=== PATIENT | female | born 1985 ===

== ENCOUNTER 2017-05-28 20:16 | Observation (INO) ==
[2017-05-28 20:40] VITALS: BP 117/61
[2017-05-28 20:46] LABS: Bilirubin,Urine Negative (Negative); Blood,Urine Negative (Negative); Color,Urine Yellow (Yellow); Glucose,Urine (UA) Normal (Normal); Ketones,Urine Negative (Negative); Leukocyte Esterase,Urine Moderate (Negative); Nitrite,Urine Negative (Negative); PH,Urine 5.5 pH Units (5.0-8.0); Protein,Urine Negative (Neg-Trace)
[2017-05-28 20:48] LABS: Bacteria,Urine Few per hpf (None-Few); Hyaline Casts,Urine None Seen per lpf (None-Few); Squamous Epithelial Cell,Urine Many per lpf (None-Few); WBC,Urine 30-50 per hpf (0-3)
[2017-05-28 20:49] LABS: Clarity,Urine Hazy (Clear)
[2017-05-28 20:58] LABS: Amphetamine Screen,Urine Negative ng/mL (Cutoff=1000); Barbiturate Screen,Urine Negative ng/mL (Cutoff=200); Benzodiazepines Screen,Urine Negative ng/mL (Cutoff=200); Cannabinoid Screen,Urine Negative ng/mL (Cutoff = 50); Cocaine Screen,Urine Negative ng/mL (Cutoff= 300); Opiate Screen,Urine Negative ng/mL (Cutoff=300); Phencyclidine Screen,Urine Negative ng/mL (Cutoff=25)
--- NOTE | 2017-05-28 20:58 | OB/GYN History & Physical ---
Date of Encounter: 05/28/17 Time of Encounter: 20:54 Assessment and Plan (1) 37 weeks gestation of Current visit: Yes Status: Acute patient concerned for labor. no bleeding, cramping, or fluid leakage. We will plan to monitor the patient and recheck cervix in 1-2 hours plan to discharge home if no cervical change. History of Present Illness HPI: Ms. Eastman is a 32 year old female at 37 weeks and 3 days presenting to labor and delivery for concern she is in labor. Patient states she was seen a few days ago in the office and told she was at 4 CM. She states with her first she did not have any pain with contractions so she was concerned since baby feels very low. Denies any bleeding, cramping, or fluid leakage. Patient denies urinary complaints. Increased pressure and back pain recently. No complications with first . Patient is group B strep negative. No other labs found in her chart. Past Med Surg Social Fam HX - Past Medical History Medical history: no medical history Psychiatric history: no psych history - Past Surgical History Surgical History: no surgical history - Social History Smoking Status: Never smoker Alcohol use: none Drug use: none - Family History Father Age: 64 Living Status: Still Living Hx Family Cardiac Disorders: No Hx Family Respiratory Disorders: No Hx Family Cancer: No Hx Family GI Disorders: No Hx Family Genitourinary Disorders: No Hx Family Endocrine Disorder: No Hx Family Musculoskeletal Disorders: No Hx Family Neuromuscular Disorders: No Hx Family Neurologic Disorders: No Hx Family HEENT Disorders: No Hx Family Autoimmune Disorders: No Hx Family Reproductive Disorders: No Hx Family Psychosocial Disorders: No Hx Family Medical Disorders: Yes (seizure's) Obstetrical History - Pregnancies : 2 Para: 1 Term: 1 : 0 Ab's: 0 Livin Medications and Allergies Formula Tablet 1 tab PO DAILY 05/28/17 [History] 3 Allergy/AdvReac Type Severity Reaction Status Date / Time Erythromycin Base AdvReac Intermediate See Verified 05/28/17 20:45 Comments Review of System OB All systems PM: reviewed and no additional remarkable complaints except as stated Exam - Vital Signs Vital signs: Initial Vital Signs Temp Pulse Resp BP 97.9 F 96 16 117/61 05/28/17 20:27 05/28/17 20:27 05/28/17 20:27 05/28/17 20:27 - Constitutional Constitutional: well developed, well nourished, no acute distress, average body habitus - HEENT HEENT: Normocephaly, Mucus Membranes Moist - Neck Neck exam: full ROM, normal inspection - Lungs Respiratory exam: CTAB - Cardiovascular Cardiovascular exam: RRR - Abdomen Abdomen: Present: gravid, non tender - Extremities Extremities exam: warm - Uterus Uterus exam: Present: enlarged (gravid), normal contour Results Abnormal lab results Urine Clarity Hazy (Clear) A 05/28/17 20:35 Urine Urobilinogen 4.0 mg/dL (Normal) H 05/28/17 20:35 Ur Leukocyte Esterase Moderate (Negative) H 05/28/17 20:35 Urine Microscopic RBC 5-15 per hpf (0-3) H 05/28/17 20:35 Urine Microscopic WBC 30-50 per hpf (0-3) H 05/28/17 20:35 Ur Squamous Epith Cells Many per lpf (None-Few) H 05/28/17 20:35 All other labs normal. - VTE Reasons for not Prescribing Prophylaxis: Treatment not Indicated - Low risk for VTE
== END 2017-05-29 01:24 | disposition home or self-care (01) ==
LOC: 1NENULAB
PROVIDERS: ADMIT Obstetrics & Gynecology; ATTEND Obstetrics & Gynecology

== ENCOUNTER 2017-05-30 19:57 | Inpatient (IN) ==
[2017-05-30 18:00] LABS: Bilirubin,Urine Negative (Negative); Blood,Urine Negative (Negative); Clarity,Urine Cloudy (Clear); Color,Urine Yellow (Yellow); Glucose,Urine (UA) Normal (Normal); Ketones,Urine Trace mg/dL (Negative); Leukocyte Esterase,Urine Large (Negative); Nitrite,Urine Negative (Negative); Protein,Urine Negative (Neg-Trace); Specific Gravity,Urine 1.012 (1.010-1.025); Urobilinogen,Urine Normal (Normal)
[2017-05-30 18:03] LABS: Bacteria,Urine None Seen per hpf (None-Few); Hyaline Casts,Urine None Seen per lpf (None-Few); RBC,Urine 0-3 per hpf (0-3); Squamous Epithelial Cell,Urine Many per lpf (None-Few); WBC,Urine 30-50 per hpf (0-3)
[2017-05-30 18:09] LABS: Amphetamine Screen,Urine Negative ng/mL (Cutoff=1000); Barbiturate Screen,Urine Negative ng/mL (Cutoff=200); Benzodiazepines Screen,Urine Negative ng/mL (Cutoff=200); Cannabinoid Screen,Urine Negative ng/mL (Cutoff = 50); Cocaine Screen,Urine Negative ng/mL (Cutoff= 300); Opiate Screen,Urine Negative ng/mL (Cutoff=300); Phencyclidine Screen,Urine Negative ng/mL (Cutoff=25)
[~2017-05-30 19:57] MED LIST: *HR* Nalbuphine 20 MG/ML AMPUL IVP PRN; Famotidine 20 MG/2 ML VIAL IVP PRN; Lidocaine 1% 20 ML MDV INFILT PRN; Naloxone 0.4 MG/ML INJ IVP PRN; Ondansetron 4 MG/2 ML VIAL IVP PRN
[2017-05-30] MEDS ORDERED: Ringers Solution, Lactated 1,000 ML IVC SCH (20:00)
--- NOTE | 2017-05-30 20:24 | OB/GYN History & Physical ---
Date of Encounter: 05/30/17 Time of Encounter: 20:00 Assessment and Plan (1) Encounter for induction of labor Current visit: Yes Status: Acute Plan: - NST category II, with wide, variable decelerations indicating induction of labor - admit to L&D -expectant management. Consider beginning induction with pitocin - obtained CBC - anticipate normal POC per consult with Dr Bowman. (2) heart deceleration Current visit: Yes Status: Acute wide, variable decelerations (3) 37 weeks gestation of Current visit: No Status: Acute History of Present Illness Chief complaint: contractions HPI: Ms. Eastman is a 32 year old female at 37+5 weeks presented to labor and delivery with contractions and was found to have wide, variable decelerations. Patient has been ankit intermittently but felt different pressure today and did not feel her contractions last . Patient's is uncomplicated. Reports active movement. Patient denies vaginal bleeding or leakage of fluids. Denies N/V, changes in vision, LUDWIG. Patient follows up with the midwives. PNL: Blood type A+, GBS neg, RI, HBsAG neg, HIV neg. RPR neg. Past Med Surg Social Fam HX - Past Medical History Medical history: no medical history, other (PMDD) Psychiatric history: no psych history - Past Surgical History Surgical History: no surgical history - Social History Smoking Status: Never smoker Smokeless Tobacco Status: No Alcohol use: none Drug use: none - Family History Father Living Status: Still Living Hx Family Cardiac Disorders: No Hx Family Respiratory Disorders: No Hx Family Cancer: No Hx Family GI Disorders: No Hx Family Endocrine Disorder: No Hx Family Neuromuscular Disorders: No Hx Family Neurologic Disorders: No Hx Family HEENT Disorders: No Hx Family Autoimmune Disorders: No Mother Hx Family Cardiac Disorders: Yes (HTN, heart disease) Grandmother Hx Family Reproductive Disorders: Yes (breast ca) Obstetrical History - Pregnancies : 2 Para: 1 Term: 1 : 0 Ab's: 0 Livin - History/Complications History/Complications: none Medications and Allergies Formula Tablet 1 tab PO DAILY 05/28/17 [History] 3 Allergy/AdvReac Type Severity Reaction Status Date / Time Erythromycin Base AdvReac Intermediate See Verified 05/28/17 20:45 Comments Review of System OB All systems PM: reviewed and no additional remarkable complaints except as stated Exam - Vital Signs Vital signs: wnl - Constitutional Constitutional: well developed, well nourished - HEENT HEENT: EOMI, PERRL - Neck Neck exam: full ROM - Lungs Respiratory exam: CTAB - Cardiovascular Cardiovascular exam: RRR - Abdomen Abdomen: Present: non tender - Extremities Extremities exam: normal inspection - Cervix Dilation: 5 Effacement: 80 - Uterus Uterus exam: Present: normal size Results Result Diagrams: 05/30/17 20:25 Abnormal lab results Urine Clarity Cloudy (Clear) A 05/30/17 17:51 Urine Ketones Trace mg/dL (Negative) H 05/30/17 17:51 Ur Leukocyte Esterase Large (Negative) H 05/30/17 17:51 Urine Microscopic WBC 30-50 per hpf (0-3) H 05/30/17 17:51 Ur Squamous Epith Cells Many per lpf (None-Few) H 05/30/17 17:51 All other labs normal. - VTE Reasons for not Prescribing Prophylaxis: Treatment not Indicated - Low risk for VTE - Attending Attestation I examined this patient and my medical decision-making was reviewed with the Resident Physician. I agree with the documented findings, disposition and treatment plan as described. Peggy Pro CNM
[2017-05-30 20:36] LABS: Basophils % 0.3 %; Eosinophils % 0.1 %; Hematocrit 37.8 % (35.3-44.9); Hemoglobin 12.3 g/dL (11.5-15.4); Immature Granulocytes % 0.4 % (0-4); Lymphocytes # 1.4 K/mcL (0.6-4.6); Lymphocytes % 20.1 %; Mean Corpuscular HGB Conc 32.5 g/dL (31.6-35.5); Mean Corpuscular Hemoglobin 29.4 pg (28.0-33.3); Mean Corpuscular Volume 90.2 fL (83.0-100.0); Mean Platelet Volume 11.6 fL (9.4-12.4); Monocytes # 0.6 K/mcL (0.0-1.3); Monocytes % 8.2 %; Platelet Count 164 K/mcL (140-400); Red Blood Count 4.19 M/mcL (3.82-4.97); Red Cell Distribution Width 13.2 % (11.5-14.5); Segmented Neutrophils % 70.9 %
[2017-05-30] MEDS ORDERED: Oxytocin 20 units/ LR 1000 mL 20 UNIT/1,000 ML BAG IVC SCH (20:45)
--- NOTE | 2017-05-31 03:48 | Event Note ---
Date of Encounter: 05/31/17 Time of Encounter: 03:38 Called to room by nursing staff. Patient is having difficulty with deciding to proceed with the induction of labor. I sat with the patient and her family for a significant amount of time discussing the pros/cons/unknowns of induction of labor based upon tracing. While in the room, fetus had two audible decelerations with maternal movement that returned to baseline over a 30 second duration. Encouraged proceeding with IOL due to unknown reasons as to why fetus continues to decelerate with maternal movement. Patient has increased fear of vomiting during labor and is afraid that she will vomit with IOL. Discussed that there is medication available to decrease potential for vomiting. Patient agrees to IOL after discussion and would like zofran prior to starting pitocin. We discussed turning off the lights and attempting to relax to help cervical dilation occur. At the time of this discussion patient is open to an epidural if needed, but declines AROM if possible to avoid.
[2017-05-31] MEDS ORDERED: *HR* FentaNYL (PF) 100 MCG/2 ML VIAL EP ONE (07:24)
[2017-05-31] MEDS ORDERED: *HR* Ropivacaine/PF 0.2% 20 ML VIAL EP ONE (07:24)
[2017-05-31] MEDS ORDERED: *HR* FentaNYL (PF) 100 MCG/2 ML VIAL ONE (07:26)
[2017-05-31] MEDS ORDERED: *HR* Ropivacaine/PF 0.2% 20 ML VIAL ONE (07:26)
[2017-05-31] MEDS ORDERED: Epidural Premix (fent/bupiv) 110 ML EP ONE (07:26)
[2017-05-31] MEDS ORDERED: Epidural Premix (fent/bupiv) 110 ML EP SCH (07:30)
--- NOTE | 2017-05-31 07:52 | Anesthesia Evaluation PreOp ---
Date of Encounter: 05/31/17 Time of Encounter: 07:30 - Past History Planned Operation: jessenia Cardiac History: Denies any Significant Hx Pulmonary History: Denies Any Significant HX SIDEWALK REPAIRER History: Denies Any Significant HX Other Medical History: Denies Any Significant HX, GERD Anesthesia History: No Prior Anesthetic Complications : Yes Test: Positive Alcohol Use: none Drug use: none Medications and Allergies Formula Tablet 1 tab PO DAILY 05/28/17 [History] 3 Allergy/AdvReac Type Severity Reaction Status Date / Time Erythromycin Base AdvReac Intermediate See Verified 05/28/17 20:45 Comments - Meds/Allergy Pre-op Review Medications Reviewed: Yes Allergies Reviewed: Yes Beta Blockers on Current Med List: No Anesthesia Results - Labs 05/30/17 20:25 Anesthesia Exam 123/78 98 16 fht 133 Height: 5'4" Weight: 156 NPO (# of Hours): 6 Pain Scale: 8 Pain Scale Used: Numeric (1 - 10) - HEENT Pupil (Motor): Pupils equal Mallampati: II Teeth: Normal Oral Opening: Greater than 3 - SIDEWALK REPAIRER LOC: Oriented SIDEWALK REPAIRER Motor: Normal RUE, Normal LUE, Normal RLE, Normal LLE, Normal Face SIDEWALK REPAIRER Sensory: Normal: RUE, LUE, RLE, LLE, Face - Cardiac Rhythm: Regular Murmur: None - Pulmonary Breath Sounds: bilateral Clear Respiratory Effort: Symmetrical Anesthesia Assess/Plan ASA Score: 2 Modified Candy Scale for Level of Consciousness: Cooperative, oriented, and tranquil Anesthetic Plan: Regional (risks discussed, questions answered, consented) Autologous Blood: No Monitoring Plan: Standard Monitors Recovery Plan: Other
--- NOTE | 2017-05-31 07:56 | Anesthesia Procedures ---
Date of Encounter: 05/31/17 Time of Encounter: 07:54 Procedures: Anesthesia - Epidural/Spinal Patient ID/Chart reviewed: Yes Patient examined: Yes OB Eval: Gestational age: 37.4 OB Eval: : 2 OB Eval: Hx Para: 1 OB Eval: Dilated at (cm): 9 OB Eval: Contractions: Non-stressed pattern Consent Obtained: Yes Supplemental Oxygen: None/Room Air Site Prep: Aseptic Technique, Sterile prep and drape, Povidone-Iodine 1% Patient position: upright Local Anesthetic: Lidocaine 1% Amount of Local Anesthetic used: 3 Touhy Needle Gauge: 18 Touhy Needle Depth (cm): 6 Catheter Depth at Skin (cm): 10 Test Dose (1.5% Lido + Epi): Volume given (mls): 3 Test Dose Result: Negative Loading Dose: Fentanyl (mcg): 100 Loading Dose: Other: rop 0.2% 10 cc Loading Dose Administered: Thru Touhy Needle Infusion Med: 0.125% Bupivacaine w/ 2 mcg/ml Fentanyl Infusion Rate (mls/hr): [address]: Tegaderm Blood: No CSF: No Paresthesia: No Procedure: aseptic, tolerated well, VSS, effective Vitals + FHT's: 123/89 98 16 fht 144
--- NOTE | 2017-05-31 09:07 | OB/GYN Procedure Note ---
Delivery - Delivery Date: 05/31/17 Provider: Margarette Pro Intrapartum events: none Delivery induction: oxytocin Delivery monitor: external FHT, external uterine Anesthesia: epidural Estimated Blood Loss: 350 - Infant (s) Infant A Infant Delivery Date: 05/31/17 Infant Delivery Time: 08:29 Presentation: vertex Position: OA Route of delivery: Gender: Male Viability: Viable Pounds: 7 Ounces: 14 Weight Gram: 3575 kg at 1 minute: 6 at 5 mins: 9 Shoulder Dystocia: not encountered Specimens collected: venous cord gases, arterial cord gases Placenta: spontaneous Cord: nuchal cord, 3 umbilical vessels, delivered through nuchal - Repair Episiotomy: none Laceration Description: Periurethral, Superficial - Complications Delivery complications: none Delivery comments: Patient progressed to complete and began coached pushing to of viable male in the OA position. Tight nuchal cord encountered, delivered through. No meconium. Anterior shoulder delivered easily, posterior shoulder tight and delivered within 10 seconds under maternal effort. placed onto maternal abdomen, warmed, dried and stimulated. Apgars 6 and 9 at one and five minutes of age. Cord gasses collected. Cord double clamped and cut after pulsations ceased. Placenta delivered spontaneously and appears grossly intact with 3 vessel cord. Of note, a marginal cord insertion present upon inspection. Upon perineal inspection, hemostatic bilateral periurethral lacerations are noted. They were left to heal by second intention. A superficial laceration was noted to the posterior vaginal canal - hemostasis completed with one tie of 3/0 vicryl. Mother and infant stable in skin to skin. EBL 350ml. Dr Lin notified; Margarette Cochran CNM and Tanya Ford DO present for delivery. - Disposition Mom disposition: stable in LDR [place] disposition: stable in LDR
[2017-05-31] MEDS ORDERED: Oxytocin 20 units/ LR 1000 mL 20 UNIT/1,000 ML BAG IVC SCH (11:35)
[2017-05-31] MEDS ORDERED: Sennosides 8.6 MG TABLET PO PRN (11:35)
[2017-05-31] MEDS ORDERED: Acetaminophen 325 MG TABLET PO PRN (11:35)
[2017-05-31] MEDS ORDERED: Oxytocin 20 units/ LR 1000 mL 20 UNIT/1,000 ML BAG IVC ONE (11:35)
[2017-05-31] MEDS ORDERED: Benzocaine/Menthol 56 GM AEROSOL SPRAY TP PRN (11:35)
[2017-05-31] MEDS ORDERED: Ibuprofen 600 MG TABLET PO PRN (11:35)
[2017-06-01 04:44] LABS: Basophils % 0.1 %; Eosinophils % 0.1 %; Hematocrit 27.5 % (35.3-44.9); Immature Granulocytes % 0.7 % (0-4); Lymphocytes # 1.6 K/mcL (0.6-4.6); Lymphocytes % 22.5 %; Mean Corpuscular HGB Conc 33.1 g/dL (31.6-35.5); Mean Corpuscular Hemoglobin 29.4 pg (28.0-33.3); Mean Platelet Volume 11.7 fL (9.4-12.4); Monocytes # 0.8 K/mcL (0.0-1.3); Monocytes % 11.4 %; Neutrophils # 4.6 K/mcL (1.6-8.9); Platelet Count 148 K/mcL (140-400); Red Blood Count 3.09 M/mcL (3.82-4.97); Red Cell Distribution Width 13.3 % (11.5-14.5); Segmented Neutrophils % 65.2 %
[2017-06-01 04:47] LABS: Hemoglobin 9.1 g/dL (11.5-15.4)
[2017-06-01 07:51] VITALS: BP 108/69
--- NOTE | 2017-06-01 08:10 | Discharge Summary ---
Date of Encounter: 06/01/17 Time of Encounter: 09:15 - Discharge Diagnosis (1) Encounter for induction of labor Priority: Secondary Status: Acute (2) heart deceleration Priority: Secondary Status: Acute (3) 37 weeks gestation of Priority: Primary Status: Acute (4) Normal vaginal delivery Priority: Secondary Status: Acute (5) Contraceptive education Priority: Secondary Status: Acute Comments: Pt planning on s/o having vasectomy eventually but education given regarding contraceptive options. She declines contraception prior to discharge but will consider options before pp visit. - Discharge Medications Prescriptions: Acetaminophen [Tylenol] 650 mg PO Q6HR PRN #40 tablet PRN Reason: Mild Pain Ibuprofen [Motrin] 600 mg PO Q6HR PRN #40 tablet PRN Reason: Cramping Docusate [Colace] 100 mg PO BID #10 capsule Ferrous Sulfate 325 mg PO DAILY #30 tablet Home Medications: Formula Tablet 1 tab PO DAILY 05/28/17 [History] Acetaminophen [Tylenol] 650 mg PO Q6HR PRN #40 tablet 06/01/17 [Rx] Benzocaine/Menthol [place] [Dermoplast [place]] 1 appl TP QID PRN aerosol 06/01/17 [Rx] Docusate [Colace] 100 mg PO BID #10 capsule 06/01/17 [Rx] Ferrous Sulfate 325 mg PO DAILY #30 tablet 06/01/17 [Rx] Ibuprofen [Motrin] 600 mg PO Q6HR PRN #40 tablet 06/01/17 [Rx] Allergies/Adverse Reactions: 3 Allergy/AdvReac Type Severity Reaction Status Date / Time Erythromycin Base AdvReac Intermediate See Verified 05/28/17 20:45 Comments Data Procedures and tests throughout hospitalization: Laboratory Tests 05/30/17 05/30/17 05/30/17 17:51 17:51 20:25 WBC 7.1 RBC 4.19 Hgb 12.3 Hct 37.8 MCV 90.2 MCH 29.4 MCHC 32.5 RDW 13.2 Plt Count 164 MPV 11.6 Immature Gran % 0.4 Seg Neutrophils % 70.9 Lymphocytes % 20.1 Monocytes % 8.2 Eosinophils % 0.1 Basophils % 0.3 Neutrophils # 5.0 Lymphocytes # 1.4 Monocytes # 0.6 Eosinophils # 0.0 Basophils # 0.0 Urine Color Yellow Urine Clarity Cloudy A Urine pH 6.0 Ur Specific [place] 1.012 Urine Protein Negative Urine Glucose (UA) Normal Urine Ketones Trace H Urine Blood Negative Urine Nitrite Negative Urine Bilirubin Negative Urine Urobilinogen Normal Ur Leukocyte Esterase Large H Urine Microscopic RBC 0-3 Urine Microscopic WBC 30-50 H Ur Squamous Epith Cells Many H Urine Bacteria None Seen Hyaline Casts None Seen Ur Culture Indicated? NO. Urine Opiates Screen Negative Ur Barbiturates Screen Negative Ur Phencyclidine Scrn Negative Ur Amphetamines Screen Negative U Benzodiazepines Scrn Negative Urine Cocaine Screen Negative U Marijuana (THC) Screen Negative 06/01/17 04:03 WBC 7.1 RBC 3.09 L Hgb 9.1 L D Hct 27.5 L MCV 89.0 MCH 29.4 MCHC 33.1 RDW 13.3 Plt Count 148 MPV 11.7 Immature Gran % 0.7 Seg Neutrophils % 65.2 Lymphocytes % 22.5 Monocytes % 11.4 Eosinophils % 0.1 Basophils % 0.1 Neutrophils # 4.6 Lymphocytes # 1.6 Monocytes # 0.8 Eosinophils # 0.0 Basophils # 0.0 Urine Color Urine Clarity Urine pH Ur Specific [place] Urine Protein Urine Glucose (UA) Urine Ketones Urine Blood Urine Nitrite Urine Bilirubin Urine Urobilinogen Ur Leukocyte Esterase Urine Microscopic RBC Urine Microscopic WBC Ur Squamous Epith Cells Urine Bacteria Hyaline Casts Ur Culture Indicated? Urine Opiates Screen Ur Barbiturates Screen Ur Phencyclidine Scrn Ur Amphetamines Screen U Benzodiazepines Scrn Urine Cocaine Screen U Marijuana (THC) Screen Labs on day of discharge: Labs from last 24 hours 06/01/17 04:03 WBC 7.1 RBC 3.09 L Hgb 9.1 L D Hct 27.5 L MCV 89.0 MCH 29.4 MCHC 33.1 RDW 13.3 Plt Count 148 MPV 11.7 Immature Gran % 0.7 Seg Neutrophils % 65.2 Lymphocytes % 22.5 Monocytes % 11.4 Eosinophils % 0.1 Basophils % 0.1 Neutrophils # 4.6 Lymphocytes # 1.6 Monocytes # 0.8 Eosinophils # 0.0 Basophils # 0.0 Date of admission: 05/30/17 19:57 Consults: 05/31/17 11:35 Consult to Reel Repairer [CONS] Routine Comment: Vaginal delivery, consult needed Discharging clinician: Yin Pinon Anticipated date of discharge: 06/01/17 - Patient Status Disposition: Home, Self-Care Condition: Good Functional capacity at discharge: independent ambulation Overall status at discharge: patient is progressing back to baseline - Discharge Instructions - Diet and Activity Activity: increase activity as tolerated Diet: advance to your usual diet Hospital Course Reason for admission: active labor Delivery: Episiotomy: none Laceration: vaginal side wall Other procedures: none complications: none Discharge diagnosis: IUP at term delivered (df) Virgie baby: male Hospital course: - Delivery Date: 05/31/17 Provider: Margarette Pro Intrapartum events: none Delivery induction: oxytocin Delivery monitor: external FHT, external uterine Anesthesia: epidural Estimated Blood Loss: 350 - (s) A Delivery Date: 05/31/17 Delivery Time: 08:29 Presentation: vertex Position: OA Route of delivery: Gender: Male Viability: Viable Pounds: 7 Ounces: 14 Weight Gram: 3575 kg at 1 minute: 6 at 5 mins: 9 Shoulder Dystocia: not encountered Specimens collected: venous cord gases, arterial cord gases Placenta: spontaneous Cord: nuchal cord, 3 umbilical vessels, delivered through nuchal - Repair Episiotomy: none Laceration Description: Periurethral, Superficial - Complications Delivery complications: none Delivery comments: Patient progressed to complete and began coached pushing to of viable male in the OA position. Tight nuchal cord encountered, delivered through. No meconium. Anterior shoulder delivered easily, posterior shoulder tight and delivered within 10 seconds under maternal effort. Infant placed onto maternal abdomen, warmed, dried and stimulated. Apgars 6 and 9 at one and five minutes of age. Cord gasses collected. Cord double clamped and cut after pulsations ceased. Placenta delivered spontaneously and appears grossly intact with 3 vessel cord. Of note, a marginal cord insertion present upon inspection. Upon perineal inspection, hemostatic bilateral periurethral lacerations are noted. They were left to heal by second intention. A superficial laceration was noted to the posterior vaginal canal - hemostasis completed with one tie of 3/0 vicryl. Mother and infant stable in skin to skin. EBL 350ml. Dr Lin notified; Margarette Cochran CNM and Tanya Ford DO present for delivery. - Disposition Mom disposition: stable iN . No complications. + void, appetite good, mild lochia, pain well controlled. Patient stable and ready for discharge. F/u appointment with Margarette Pro in 4 weeks. Time Attestation: Total time spent providing and/or coordinating discharge services: Exam - Constitutional Vitals: Temp Pulse Resp BP Pulse Ox 97.8 F 81 12 108/69 98 06/01/17 07:50 06/01/17 07:50 06/01/17 07:50 06/01/17 07:50 06/01/17 07:50 General appearance IM: pleasant, no acute distress - Respiratory Respiratory exam: Present: CTAB - Cardiovascular Cardiovascular exam IM: Present: RRR - GI/Abdominal GI/Abdominal exam IM: normal bowel sounds - Uterine Tone: Firm Uterus Position: 2 Fingers Below Umbilicus - Extremities Exam Extremities exam IM: Present: normal inspection - Neurological Exam Neurological exam: alert, no focal deficits
[2017-06-01] MEDS ORDERED: Prenatal Vit/FA 1 EACH TABLET PO SCH (09:00)
[2017-06-01] MEDS ORDERED: Lanolin 7 G OINT...G. TP PRN (12:13)
== END 2017-06-01 15:50 | disposition home or self-care (01) | DRG 775 ==
LOC: 1NENULAB → 1NENUOBS 05-31 11:34
PROVIDERS: ADMIT Family Medicine; ATTEND Advanced Practice Midwife

== ENCOUNTER 2018-02-13 11:12 | Inpatient (IN) ==
[2018-02-13] MEDS ORDERED: *HR* LORazepam 2 MG/ML VIAL IVP ONE (11:27)
[2018-02-13] MEDS ORDERED: *HR* Ticagrelor 90 MG TABLET PO ONE (11:33)
[2018-02-13] MEDS ORDERED: *HR* Heparin 5,000 UNIT/ML VIAL IVP PRN ×2 (11:33)
[2018-02-13] MEDS ORDERED: *HR* Heparin 5,000 UNIT/ML VIAL IVP ONE (11:33)
[2018-02-13] MEDS ORDERED: Heparin 25,000 UNIT/500 ML D5W 25,000 UNIT/500 ML BAG IVC SCH (11:45)
--- NOTE | 2018-02-13 11:50 | Emergency Department Note ---
Disposition Clinical Impression: STEMI (ST elevation myocardial infarction) Disposition: Admitted As Inpatient Condition: Fair Referrals: Virginia Sanabria DO [Primary Care Provider] - Forms: ED Satisfaction Letter Time of Disposition: 12:27 General Adult HPI - General Chief complaint: ED Chest Pain Stated complaint: Chest Pain Time Seen by Provider: 02/13/18 11:14 - History of Present Illness Pain Scale: 9 - Related Data Previous Rx's Medication Instructions Recorded Breast Pump [BREAST PUMP] 1 each .ROUTE AD #1 each 06/01/17 Ibuprofen [Motrin] 600 mg PO Q6HR PRN #40 tablet 06/01/17 cephALEXin [Cephalexin] 500 mg PO QID 10 Days #40 tablet 07/18/17 Allergies Allergy/AdvReac Type Severity Reaction Status Date / Time Erythromycin Base AdvReac Intermediate See Verified 07/18/17 20:34 Comments Past Medical History - Past Medical History Medical history: Reports: non-contributory Surgical history: Reports: no surgical history Psychiatric history: Reports: anxiety - Social History Smoking Status: Never smoker Smokeless Tobacco Status: No Alcohol use: Reports: none Drug use: Reports: none Physical Exam - General General appearance: alert, anxious Course Vital Signs Temperature 98.1 F 02/13/18 11:16 Pulse Rate 50 02/13/18 11:16 Respiratory Rate 19 02/13/18 11:16 Blood Pressure 108/54 02/13/18 11:16 O2 Sat by Pulse Oximetry 99 02/13/18 11:16 Temperature 98.1 F 02/13/18 11:16 Pulse Rate 53 02/13/18 11:58 Respiratory Rate 19 02/13/18 11:58 Blood Pressure 108/54 02/13/18 11:58 O2 Sat by Pulse Oximetry 100 02/13/18 11:58 Oxygen Delivery Oxygen Delivery Room Air Medical Decision Making - Lab Data Result diagrams: 02/13/18 11:28 Lab Results 02/13/18 02/13/18 Range/Units 11:28 11:28 WBC 6.6 (4.3-11.1) K/mcL RBC 4.79 (3.82-4.97) M/mcL Hgb 14.7 (11.5-15.4) g/dL Hct 43.6 (35.3-44.9) % MCV 91.0 (83.0-100.0) fL MCH 30.7 (28.0-33.3) pg MCHC 33.7 (31.6-35.5) g/dL RDW 11.4 L (11.5-14.5) % Plt Count 308 (140-400) K/mcL MPV 10.5 (9.4-12.4) fL Immature Gran % 0.2 (0-4) % Seg Neutrophils % 56.7 % Lymphocytes % 33.6 % Monocytes % 7.5 % Eosinophils % 1.5 % Basophils % 0.5 % Neutrophils # 3.7 (1.6-8.9) K/mcL Lymphocytes # 2.2 (0.6-4.6) K/mcL Monocytes # 0.5 (0.0-1.3) K/mcL Eosinophils # 0.1 (0.0-0.6) K/mcL Basophils # 0.0 (0.0-0.2) K/mcL PT 10.3 (9.4-12.1) Seconds INR 0.9 APTT 31.0 (26.0-36.0) Seconds Critical Care Time Critical Care Time: Yes Total Critical Care Time: 35 Attestation: Critical care performed: Time is exclusive of separately billable procedures. Time includes: direct patient care, patient reassessment, coordination of patient care, interpretation of data (laboratory data, radiology data, and respiratory data), review of patient's medical records, medical consultation and documentation of patient care. Procedures included in critical care time: Procedures excluded from critical care time: Attestation Statement - Attestation Attestation: I, Hieu Alex DO, examined this patient [id number] and my medical decision-making was reviewed with Dr. Misbah Ramirez, Resident Physician. I agree with the documented findings, disposition and treatment plan as described except to the extent set forth below. Please see my progress notes for details. 32-year-old female presents emergency room with acute onset of chest pain approximately 20 minutes prior to arrival to the emergency room. Patient denies any falls trauma or injury. Currently denying shortness of breath headache vision changes nausea vomiting or diarrhea. Denies any fevers or chills. Denies any trauma or injury. Patient did deliver a child proximal 10 months ago and has been severely depressed at home. She does not have any history of cardiac disease. She does not use any drugs smoke smoke or use tobacco or drink any alcohol. She is currently breast-feeding. Has no risk factors based on presentation with initial EKG shows significant concern for ST segment elevation in leads 1 aVL V2 V3 V4 V5. There is reciprocal depression in leads 3 and progression and aVF. Patient does have hyperacute T waves in the medial precordial leads. The STEMI alert was called at 1123 hours. First EKG was collected at 1118. Second EKG was collected at 1120. Morphology was the same. EKG pad placement was confirmed. STEMI alert was called at 1123. Patient was provided with aspirin prior to coming in. Patient was given Alimta and heparin here. Chest x-ray stable no signs widening of mediastinum. Serum as well as CBC and chemistry were also collected. Patient did just deliver a child 10 months ago. She is currently breast-feeding. She did finish her menstrual cycle one week ago and has not had any bleeding since then. Patient is otherwise clinically stable. The enamel applier Dr. Issa was contacted and he is coming in to perform a catheterization the patient. Concern is noted for possible toxicity blue secondary to the severe stress that she has been under depression secondary to the child versus actual myocardial infarction. Patient will require admission of this workup and treatment course up and completed. 35 minutes of critical care provider the patient's treatment course secondary to multidisciplinary intervention and management. See detailed documentation the physical exam, medical intervention, medical decision-making disposition the resident physician's note. 1200 Patient was transported to the Joint Cutter [facility] without any complication. Patient has maintained appropriate vital signs of the treatment course. No other acute issues noted this time. Patient will be admitted for continuation of care by the cardiology team
--- NOTE | 2018-02-13 11:55 | Emergency Department Note ---
Disposition Clinical Impression: STEMI (ST elevation myocardial infarction) Disposition: Admitted As Inpatient Condition: Fair Referrals: Virginia Sanabria DO [Primary Care Provider] - Forms: ED Satisfaction Letter Time of Disposition: 12:04 Chest Pain HPI - General Chief Complaint: ED Chest Pain Stated Complaint: Chest Pain Time Seen by Provider: 02/13/18 11:14 Source: patient Mode of arrival: EMS Limitations: no limitations Vital Signs Reviewed: Yes Nursing Notes Reviewed: Yes - History of Present Illness HPI Narrative: 32-year-old female no past medical history recently delivered 8 months ago is still breast-feeding process the emergency department with 8 out of 10 chest pain that is in the center of her chest radiating into her back. Patient states she was sitting at home watching TV when she started in the chest pain that began 10 minutes prior to arrival to the emergency department. Said that the chest pain is reading also up into her chin. Said it was a dull ache. Says she has never had this pain before. Patient has no cardiac history no other medical problems does not take any other medications. Says she has been depressed recently. She otherwise has no complaints including no fevers, chills , nausea, vomiting, headaches, blurry vision, neck pain, back pain, shortness of breath, abdominal pain, change in balance, pain with urination, pain or tearing on the arms or legs or generalized weakness. Severity scale (1-10): 9 - Related Data Previous Rx's Medication Instructions Recorded Breast Pump [BREAST PUMP] 1 each .ROUTE AD #1 each 06/01/17 Ibuprofen [Motrin] 600 mg PO Q6HR PRN #40 tablet 06/01/17 cephALEXin [Cephalexin] 500 mg PO QID 10 Days #40 tablet 07/18/17 Allergies Allergy/AdvReac Type Severity Reaction Status Date / Time Erythromycin Base AdvReac Intermediate See Verified 07/18/17 20:34 Comments All systems ED: reviewed and negative except as stated. Review of Systems: As Per HPI Chest Pain PMH - Past Medical History Medical history: Reports: non-contributory Surgical history: Reports: no surgical history Psychiatric history: Reports: anxiety - Social History Smoking Status: Never smoker Alcohol use: Reports: none Drug use: Reports: none Physical Exam - General Limitations: no limitations General appearance: alert, anxious - Head Head exam: atraumatic, normocephalic, normal inspection - Eye Eye exam: Present: normal appearance, PERRL, EOMI - ENT ENT exam: normal exam, normal oropharynx, mucous membranes moist - Neck Neck exam: Present: normal inspection, full ROM, trachea midline - Chest Chest inspection: Present: normal inspection, symmetric chest wall rise - Respiratory Respiratory exam: Present: normal lung sounds bilaterally - Cardiovascular Cardiovascular exam: Present: regular rate, normal rhythm, normal heart sounds - Abdominal Exam Abdominal exam: Present: soft, Non-Tender, normal bowel sounds. Absent: tenderness, distention, guarding, rebound, rigidity - Extremities Exam Extremities exam: Present: normal inspection, full ROM. Absent: tenderness, pedal edema - Back Exam Back exam: Present: normal inspection, full ROM. Absent: tenderness, CVA tenderness (R), CVA tenderness (L) - Neurological Exam Neurological exam: Present: alert, oriented X3 - Skin Skin exam: Present: warm, dry, intact, normal color Course Course Narrative: 32 old female presented emergency department with chest pain. We will get basic labs including CBC, BMP, troponin as well as coags we will get EKG and chest x-ray. If patient's blood pressure and hold we will give him nitroglycerin. Patient was arty given aspirin by EMS prior to her arrival. Vital Signs Temperature 98.1 F 02/13/18 11:16 Pulse Rate 50 02/13/18 11:16 Respiratory Rate 19 02/13/18 11:16 Blood Pressure 108/54 02/13/18 11:16 O2 Sat by Pulse Oximetry 99 02/13/18 11:16 Temperature 98.1 F 02/13/18 11:16 Pulse Rate 53 02/13/18 11:58 Respiratory Rate 19 02/13/18 11:58 Blood Pressure 108/54 02/13/18 11:58 O2 Sat by Pulse Oximetry 100 02/13/18 11:58 Oxygen Delivery Oxygen Delivery Room Air Chest Pain - MDM Narrative Medical decision making narrative: Patient presented here with chest pain. After he got the EKG I noticed that it did show a STEMI patient had elevations in leads 1 V2 through V6 with reciprocal changes in lead 3. This time we decided to call the STEMI. STEMI was called at 1123. I spoke with the car painter Dr. Issa who agreed and said there take the patient to Envelope Machine Operator. I did start polenta and heparin also give patient 1 mg of Ativan to calm her nerves that she was very anxious after hearing this. Did not give nitroglycerin as patient's blood pressure was 100/40 when I evaluated her. I did place the STEMI catheterization orders and. Patient was sent to the heart catheter lab. For further evaluation. Patient is stable at this time. Chest pain was consistent unchanged during her whole stay here. Did review the EMS EKG that was sent and there is no signs of ST elevation on that one so was not called prehospital. Chest X-Ray 02/13/18 11:21 IMPRESSION: No acute process. D/ / Oscar Hopkins MD / Oscar Hopkins MD Interpreting Provider: Oscar Hopkins MD - Medical Records Medical records reviewed: Yes I reviewed the patient's medical records. - Lab Data Result diagrams: 02/13/18 11:28 - Radiology Data Radiology results reviewed: Yes I reviewed the patient's radiology results. - EKG Data EKG attestation: Yes I reviewed and interpreted this EKG. EKG results narrative: EKG done at 1118 reviewed by myself and the attending shows sinus bradycardia at a heart rate of 48, TN interval 162, QRS 91, QTC 421. There is ST elevation in leads 1 and V2 through V6 with ST depression in leads 3. No other T-wave abnormalities. No other signs of ischemia. No signs of heart block, per tree, heart strain. No WPW/Brugada/HOCM. No old EKG to compare with. Heart Score - Score History: Moderately Suspicious EKG: Significant ST-Depression Age: Less than 45 Risk Factors: No risk factors known Attestation Statement - Attestation Attestation: I, Hieu Alex DO, examined this patient [id number] and my medical decision-making was reviewed with Dr. Misbah Ramirez, Resident Physician. I agree with the documented findings, disposition and treatment plan as described except to the extent set forth below. Please see my progress notes for details.
[2018-02-13 11:59] LABS: Basophils % 0.5 %; Eosinophils # 0.1 K/mcL (0.0-0.6); Eosinophils % 1.5 %; Hematocrit 43.6 % (35.3-44.9); Hemoglobin 14.7 g/dL (11.5-15.4); Immature Granulocytes % 0.2 % (0-4); Lymphocytes # 2.2 K/mcL (0.6-4.6); Lymphocytes % 33.6 %; Mean Corpuscular HGB Conc 33.7 g/dL (31.6-35.5); Mean Corpuscular Hemoglobin 30.7 pg (28.0-33.3); Mean Platelet Volume 10.5 fL (9.4-12.4); Monocytes # 0.5 K/mcL (0.0-1.3); Monocytes % 7.5 %; Neutrophils # 3.7 K/mcL (1.6-8.9); Platelet Count 308 K/mcL (140-400); Red Blood Count 4.79 M/mcL (3.82-4.97); Red Cell Distribution Width 11.4 % (11.5-14.5); Segmented Neutrophils % 56.7 %
[2018-02-13] MEDS ORDERED: 0.9 % Sodium Chloride 1,000 ML ONE ×3 (11:59→13:13)
[2018-02-13] MEDS ORDERED: Heparin 1,000 UNITS/500 mL 500 ML ONE (11:59)
[2018-02-13] MEDS ORDERED: Nitroglycerin 1,000 MCG/10 ML VIAL IV ONE (12:00)
[2018-02-13] MEDS ORDERED: *HR* Heparin 10,000 UNIT/10 ML VIAL ONE (12:00)
[2018-02-13] MEDS ORDERED: ISOVUE-370 200 ML INFUS..BTL IV ONE ×2 (12:00→12:37)
[2018-02-13 12:06] LABS: INR 0.9; Prothrombin Time 10.3 Seconds (9.4-12.1)
[2018-02-13] MEDS ORDERED: *HR* Midazolam HCl 5 MG/5 ML VIAL IVP ONE (12:13)
[2018-02-13] MEDS ORDERED: *HR* FentaNYL (PF) 250 MCG/5 ML VIAL ONE (12:14)
[2018-02-13] MEDS ORDERED: *HR* Amiodarone 150 MG/3 ML VIAL IVPB ONE (12:16)
[2018-02-13] MEDS ORDERED: Amiodarone Premix 360 MG/200 ML BAG IVC ONE (12:17)
[2018-02-13 12:43] LABS: BUN/Creatinine Ratio 25 (6-26); Blood Urea Nitrogen 16 mg/dL (6-20); Carbon Dioxide 24 mEq/L (23-29); Chloride 105 mEq/L (98-107); Glucose 130 mg/dL (70-105); Magnesium 1.9 mg/dL (1.6-2.6); Osmolality,Calculated 293 (280-300); Potassium 3.2 mEq/L (3.5-5.1); Sodium 140 mEq/L (136-145); eGFR For Non-African Americans > 60 (> 60)
[2018-02-13 12:44] LABS: Troponin I < 0.03 ng/mL (< 0.04)
--- NOTE | 2018-02-13 13:45 | Cardiology History & Physical ---
Date of Encounter: 02/13/18 Time of Encounter: 12:00 Assessment and Plan (1) STEMI (ST elevation myocardial infarction) Current Visit: Yes Status: Acute The assessment and plan as outlined above was discussed with the patient and/or family members who expressed understanding and agreement. All questions were answered. Qualifiers: Involved coronary artery: LAD coronary artery Qualified Code(s): I21.02 - ST elevation (STEMI) myocardial infarction involving left anterior descending coronary artery History of Present Illness Chief complaint: chest pain HPI: Ms. Eastman is a 32 year old female who developed sudden onset sharp 8/10 back pain, which then radiated around to the front, stayed mid sternal, associated with nausea and shortness of breath, occurred while sitting still, did not improve after fifteen minutes, got worse, came to ER. On presentation EKG showed acute ant OR, consistent with STEMI criteria, with ST seg depression in lat leads. STEMI alert was called, pt given Brillinta, IV heparin and transferred to the curb and gutter laborer for emergent intervention. She continued to have 7/ 10 chest pain, had sudden episode of V fib, was successfully cardioverted at 200 J to NSR. She has no prior history of CAD, hypertension, or CHF, does not smoke, does not know her cholesterol numbers, has not had a stress test or echocardiogram that she is aware of. She did give 8 months ago, normal vaginal delivery without complications. Past Med Surg Social Fam HX - Past Medical History Medical history: non-contributory Psychiatric history: anxiety - Past Surgical History Surgical History: no surgical history - Social History Smoking Status: Never smoker Smokeless Tobacco Status: No Alcohol use: none Drug use: none - Family History Father Living Status: Still Living Hx Family Cardiac Disorders: No Hx Family Respiratory Disorders: No Hx Family Cancer: No Hx Family GI Disorders: No Hx Family Endocrine Disorder: No Hx Family Neuromuscular Disorders: No Hx Family Neurologic Disorders: No Hx Family HEENT Disorders: No Hx Family Autoimmune Disorders: No Mother Hx Family Cardiac Disorders: Yes (HTN, heart disease) Medications and Allergies Breast Pump [BREAST PUMP] 1 each .ROUTE AD #1 each 06/01/17 [Rx] Ibuprofen [Motrin] 600 mg PO Q6HR PRN #40 tablet 06/01/17 [Rx] cephALEXin [Cephalexin] 500 mg PO QID 10 Days #40 tablet 07/18/17 [Rx] 3 Allergy/AdvReac Type Severity Reaction Status Date / Time Erythromycin Base AdvReac Intermediate See Verified 07/18/17 20:34 Comments All Systems Review: The remainder of the systems were reviewed and are negative - Constitutional Constitutional: fatigue, lethargy, other (notes has been more tired over last two weeks, having to force herself to do normal activities of daily living.) - Psychiatric Psychiatric: anxiety Physical Examination General: Conversant (moderate distress following ) HEENT: Atraumatic, Normocephaly, Mucus Membranes Moist Neck: No JVD, Normal carotid pulses Cardiac: Reg Rate and Rhythm, Normal S1 and S2 Lungs: Normal Breath Sounds, No Wheeze, Rales, Rhonchi Neuro: Alert and responsive, No focal deficits noted Abdomen: Non-Tender Skin: No rashes noted on visualized skin Musculoskeletal: No Chest Wall Tenderness Extremities: No Clubbing, No Edema Results 02/13/18 11:28 02/13/18 11:28
--- NOTE | 2018-02-13 14:07 | Invasive Diagnostic Lab Proc ---
Name: Thao Eastman Date of Study: 02/13/2018 Date: 1985 Ht: 64.2in Medical Record#: [id number] Age: 32 Wt: 129.41lb Gender: Female BSA: 3.21 Order #: [id number] BMI: 22.09 Physicians Procedure Physician: Francis Issa DO Referring MD: Virginia Sanabria DO Referring MD: Staff Name Position Time In [facility] Lucian RN Monitor 12:23 PM Gabriel Alexandra RN Clutch Assembler 12:23 PM [facility], Rosa RT (R) Scrub 12:23 PM Indications Indication STEMI Procedures Performed Procedure L HRT ARTERY/VENTRICLE ANGIO PRQ CARD REVASC ND 1 VSL CARDIOVERSION, EXTERNAL Pre-Procedure Checklist Informed consent is complete signed and on chart. H&P is on chart. ID band is on and ID verified with patient. Pt not NPO for procedure and MD aware. The procedure was described for the patient and questions were answered. ECG is on chart. Rhythm: NSR Plan of Care Patient will tolerate the procedure without complications. Adequate level of comfort will be maintained. Hemodynamics will remain stable Patient will recover from procedure without complications. Respiratory function will be maintained. Cardiac rhythm will remain stable. Patient temperature will be maintained. Patient and/or family have verbalized understanding of the procedure. Patient Education Chief Complaint/Reason for Test: Cardiac Cath Developmental Category: Adult (18-64 years) Developmentally Appropriate for Age: Yes Learning Barriers: None Education Needs: Procedure Education Method: Verbal Information Taught: Cardiac Cath Educational Evaluation: Able to repeat information Intravenous Access Time IV Size Location DC'd Fluid/Drip Rate Units RN 18g 1 1/4" Patent On Arrival Rt Antecubital Gabriel Alexandra RN 18g 1 1/4" Patent On Arrival Lt Antecubital 0.9NaCl 25 ml/hr Gabriel Alexandra RN Allergies Erythromycin Base Erythromycin Vital Signs Time BP (mmHg) HR (bpm) O2 Sat. RR (bpm) LOC 12:24 PM / % 5 = Fully awake and oriented or at pre-proc level 12:24 PM / % 4 = Oriented but drowsy 12:39 PM / % 4 = Oriented but drowsy 12:20 PM 112 / 60 80 99 % 16 12:25 PM 106 / 42 77 100 % 26 12:30 PM 103 / 53 84 100 % 17 12:35 PM 105 / 56 84 % 24 12:40 PM 104 / 58 79 100 % 13 12:45 PM 105 / 59 78 100 % 20 12:50 PM 105 / 50 74 100 % 20 12:55 PM 101 / 45 78 100 % 15 01:00 PM 104 / 54 77 98 % 11 01:05 PM 106 / 49 69 96 % 15 01:10 PM 110 / 50 67 100 % 15 01:15 PM 98 / 53 83 95 % 15 01:21 PM 118 / 57 72 98 % 9 01:25 PM 80 / 61 80 % 30 01:27 PM 110 / 60 83 98 % 23 01:30 PM 95 / 42 80 99 % 15 Procedural Medications Time Medication Dose Units Method Given By 12:24 PM Oxygen 2 L/min nasal cannula Gabriel Alexandra RN 12:27 PM Lidocaine 2% 10 ml Subcutaneous Francis Issa DO 12:33 PM Heparin 2000 units Intravenous Gabriel Alexandra RN 12:39 PM Versed 1 mg Intravenous Gabriel Alxeandra RN 12:39 PM 0.9NaCl 500 ml bolus 999 ml/hr Intravenous Gabriel Alexandra RN 12:39 PM Dopamine 5 mcg/kg/min Intravenous Gabriel Alexandra RN 12:42 PM Nitroglycerin 100 mcg Intracoronary Francis Issa DO 12:26 PM Amiodarone 150 mg Intravenous Gabriel Alexandra RN 12:26 PM Amiodarone 33.3 ml/hr Intravenous Gabriel Alexandra RN ASA Classification: Emergent Procedure: ASA score is assumed Carli Score Preprocedure Postprocedure Activity 2- Moves 4 extremities sustained head lift Activity 2- Moves 4 extremities sustained head lift Circulation 2- SBP +/= 20 points of pre-anesthetic level Circulation 2- SBP +/= 20 points of pre-anesthetic level Consciousness 2- Awake and alert oriented x 3 Consciousness 2- Awake and alert oriented x 3 O2 Saturation 2- Able to maintain O2 satruation of 92% on room air O2 Saturation 2- Able to maintain O2 satruation of 92% on room air Respiratory 2- Able to deep breathe and cough well Respiratory 2- Able to deep breathe and cough well Total Score 10 Total Score 10 Contrast Agent: Isovue Diagnostic Contrast: 170 ml Total Contrast: 170 ml Fluoro Dose: 4659 mGy Activated Clotting Time Time Seconds to Clot 12:33 PM 156 12:52 PM 302 01:19 PM 198 Procedure Log Time Note Enter By 12:07 PM CathStat 12:16 PM Pt arrived to operations label clerk 2 at 12:16 [email or web address] 12:17 PM Physician arrived 12: [facility] 12: PM Suresh and corby completed [facility] : PM Sign in performed according to hospital policy. Informed consent was obtained. [facility] 12: PM Procedure start : [facility] 12: PM Case Start 12: PM Vitals capture started with the following parameters, Patient=Adult, Interval=5 min, Initial Afnyzcxd=770 mmHg, Deflation Rate=5 mmHg, Cuff placed on Right Arm 12:20 PM HR=80 bpm, KVMO=718/60 mmhg, SpO2=99.0 %, Resp=16 B/min, Comment=nsr 12: PM Lucian Cuellar RN Position: Monitor Time in: [facility] : PM Gabriel Alexandra RN Position: Clutch Assembler Time in: [facility] 12: PM Rosa Jones RT (R) Position: Scrub Time in: [facility] 12: PM Patient charges- Angio tray pack, Navilyst 3mm J, Pulse Oximetry and ACIST tubing and transducer [facility] PM Time: 12:24 Patient comfortable and pain free: Yes [facility] : PM Time: 12:24LOC: 5 = Fully awake and oriented or at pre-proc level [facility] PM Time: 12:24 Oxygen on at 2 L/min per nasal cannula by Gabriel Alexandra RN [facility] : PM Pt defibrillated at 200 joules x 1 for V-Fib [facility] : PM Pt defibrillated at 360 joules x 1, return of NSR [facility] : PM HR=77 bpm, WSPX=092/42 mmhg, TzH3=047.0 %, Resp=26 B/min, Comment=nsr : PM Time: : Amiodarone 150 mg Intravenous [facility] Time: : Amiodarone 33.3 ml/hr Intravenous Given by Gabriel Alexandra RN [facility] 12: PM Critical cardiac patient with acute ND was brought emergently to the [facility] for immediate coronary angiography and intervention if clinically indicated. [facility] 12:27 PM Time out was performed according to hospital policy. Conscious sedation and anesthesia was achieved (see medication log with in this report above) [email or web address] 12:27 PM Time: 12:27 10 ml Lidocaine 2% to right groin Subcutaneous Given by Francis Issa DO [email or web address] 12:27 PM Micro-Introducer Kit utilized for sheath placement [email or web address] 12:28 PM 5Fr FR 4 catheter inserted over the wire DNC [email or web address] 12:28 PM Access obtained by percutaneous puncture. 6Fr 10cm Terumo Goree sheath placed in right Femoral artery. [id number] [email or web address] 12:29 PM Recorded Pressure: Ao, HR=86, Condition=Condition 1 (Aorta) Ao 90/18/52 12:29 PM Recorded Pressure: LV, LV, HR=76, Condition=Condition 1 (Left Ventricle) LV -18/-18/-18, (Left Ventricle) LV 99/24/28 12:29 PM Recorded Pressure: LV, Ao, HR=80, Condition=Condition 1 (Left Ventricle) LV 99/27/27, (Aorta) Ao 91/65/78 12:29 PM Catheter crossed the aortic valve and was selectively placed in the left ventricle. Pressures recorded on pullback for left heart catheterization. [email or web address] 12:29 PM Hand injected LV gram jcallihan 12:30 PM repositioned to RCA [email or web address] 12:30 PM RCA angiography performed in multiple views. [email or web address] 12:30 PM Catheter removed [email or web address] 12:30 PM HR=84 bpm, JRZE=958/53 mmhg, GnE4=796.0 %, Resp=17 B/min, Comment=nsr 12:30 PM 6Fr JL4 Runway guide catheter was used to cannulate the PCI vessel successfully. reused? No [email or web address] 12:31 PM Recorded Pressure: Ao, HR=84, Condition=Condition 1 (Aorta) Ao 97/70/84 12:31 PM Coronary Dominance: right [email or web address] 12:32 PM PCI Status Emergency [email or web address] 12:33 PM .014 ChoICE PT Extra Support 300cm guide wire across target lesion- successful. reused? No [email or web address] 12:33 PM Inflation device was opened. [email or web address] 12:33 PM Recorded Pressure: Ao, HR=90, Condition=Condition 1 (Aorta) Ao 91/63/77 12:33 PM At 12:33 the ACT was 156 seconds. [email or web address] 12:33 PM Time: 12:33 Heparin 2000 units Intravenous Given by Gabriel Alexandra RN 12:34 PM Lesion found in Proximal LAD. Pre Stenosis: 100 Pre REHAN Flow: 0: No Flow/No perfusion [email or web address] 12:34 PM Proximal Left Anterior Descending Coronary Artery with 100% stenosis. If graft is supplying this territory, 0 % stenosis. [email or web address] 12:34 PM Recorded Pressure: Ao, HR=83, Condition=Condition 1 (Aorta) Ao 96/58/78 12:35 PM HR=84 bpm, CCLZ=899/56 mmhg, Resp=24 B/min, Comment=nsr 12:36 PM 2.0 mm x 20 mm Emerge Monorail balloon across target lesion- successful. reused? No [email or web address] 12:36 PM Balloon inflated @ 2 albina for 26 seconds [email or web address] 12:37 PM Balloon inflated @ 9 albina for 15 seconds [email or web address] 12:39 PM Time: 12:39 Versed 1 mg Intravenous Given by Gabriel [facility] 12:[facility] PM Balloon catheter removed intact. [email or web address] 12:39 PM Time: 12:24 Patient comfortable and pain free: Yes [email or web address] 12:39 PM Time: 12:24LOC: 4 = Oriented but drowsy [email or web address] 12:39 PM Time: 12:39 0.9NaCl 500 ml bolus 999 ml/hr Intravenous Given by Gabriel Alexandra RN 12:40 PM Time: 12:39 Dopamine 5 mcg/kg/min Intravenous Given by Gabriel Alexandra RN 12:40 PM HR=79 bpm, VSXV=102/58 mmhg, CxI6=673.0 %, Resp=13 B/min, Comment=nsr 12:41 PM 2.25mm x 24mm Synergy drug-eluting stent across target lesion- successful Lot #[id number] jcallan 12:41 PM Stent deployed @ 14 albina for 17 seconds [email or web address] 12:41 PM Recorded Pressure: Ao, HR=79, Condition=Condition 1 (Aorta) Ao 85/59/72 12:42 PM Time: 12:42 Nitroglycerin 100 mcg Intracoronary Given by [facility] 12:43 PM Stent delivery system removed intact. [email or web address] 12:43 PM 2.25mm x 16mm Synergy drug-eluting stent across target lesion- successful Lot #[id number] [email or web address] 12:44 PM Stent deployed @ 14 albina for 17 seconds [email or web address] 12:45 PM Stent balloon reinflated @ 14 albina for 10 seconds [email or web address] 12:45 PM HR=78 bpm, DZKN=463/59 mmhg, LzK4=938.0 %, Resp=20 B/min, Comment=nsr 12:46 PM Stent delivery system removed intact. [email or web address] 12:50 PM Re-inserted 2.0 balloon [email or web address] 12:50 PM HR=74 bpm, TOLE=304/50 mmhg, BpO7=447.0 %, Resp=20 B/min, Comment=nsr 12:50 PM Balloon inflated @ 6 albina for 23 seconds [email or web address] 12:51 PM Recorded Pressure: Ao, HR=77, Condition=Condition 1 (Aorta) Ao 103/77/90 12:51 PM Balloon catheter removed intact. [email or web address] 12:52 PM Guide wire removed intact. [email or web address] 12:52 PM At 12:52 the ACT was 302 seconds. [email or web address] 12:54 PM Time: 12:39LOC: 4 = Oriented but drowsy [email or web address] 12:54 PM Time: 12:39 Patient comfortable and pain free: Yes [email or web address] 12:55 PM HR=78 bpm, YQSO=835/45 mmhg, IlI1=626.0 %, Resp=15 B/min, Comment=nsr 12:56 PM Recorded Pressure: Ao, HR=65, Condition=Condition 1 (Aorta) Ao 87/63/76 12:59 PM NIBP STAT measurement started. 01:00 PM HR=77 bpm, ARMV=914/54 mmhg, SpO2=98.0 %, Resp=11 B/min, Comment=nsr 01:00 PM Guide wire re-inserted [email or web address] 01:01 PM re-inserting balloon catheter jcallihan 01:02 PM Balloon catheter removed intact. [email or web address] 01:04 PM Guide wire removed intact. [email or web address] 01:05 PM .014 ChoICE PT Extra Support 300cm guide wire across target lesion- successful. reused? No [email or web address] 01:05 PM HR=69 bpm, PVGF=065/49 mmhg, SpO2=96.0 %, Resp=15 B/min, Comment=nsr 01:06 PM Recorded Pressure: Ao, HR=72, Condition=Condition 1 (Aorta) Ao 95/68/82 01:09 PM 2.0mm x 8mm Multi-Link Mini Vision RX Stent bare metal stent across target lesion- successful Lot #[id number] [email or web address] 01:10 PM HR=67 bpm, REHU=942/50 mmhg, InM5=771.0 %, Resp=15 B/min, Comment=nsr 01:11 PM Recorded Pressure: Ao, HR=68, Condition=Condition 1 (Aorta) Ao 95/64/78 01:13 PM Stent deployed @ 14 albina for 16 seconds [email or web address] 01:13 PM Stent deployed @ 16 albina for 16 seconds [email or web address] 01:14 PM Recorded Pressure: Ao, HR=80, Condition=Condition 1 (Aorta) Ao 91/48/66 01:15 PM Stent delivery system removed intact. [email or web address] 01:15 PM HR=83 bpm, NIBP=98/53 mmhg, SpO2=95.0 %, Resp=15 B/min 01:15 PM Guide wire removed intact. [email or web address] 01:15 PM Groin shot obtained, contrast injected [email or web address] 01:15 PM Guide catheter removed intact. [email or web address] 01:15 PM Procedure completed at 13:15 02/13/2018 [email or web address] 01:16 PM Did you address REHAN flow and Dominance? Yes [email or web address] 01:17 PM Isovue 370 - 200ml,1 Bottle(s) used. [email or web address] 01:18 PM Sign out completed: Radiation Dose 471.96 mGy, 4659 cGy/cm2 Fluoro Time: 14.4 Isovue 370 - 200ml contrast 170 ml given by Francis Issa DO. Complications: None. The patient was discharged out of the [facility] in stable condition. Cardiac Rehab Consult needed: YesConfirmed administered medications: Yes [email or web address] 01:18 PM Sheath left in place to be pulled on floor/holding areaV+Pad jcallihan 01:19 PM At 13:19 the ACT was 198 seconds. [email or web address] 01:21 PM HR=72 bpm, KQWH=753/57 mmhg, SpO2=98 %, Resp=9 B/min 01:25 PM HR=80 bpm, NIBP=80/61 mmhg, Resp=30 B/min 01:26 PM NIBP STAT measurement started. 01:27 PM HR=83 bpm, GFXL=021/60 mmhg, SpO2=98.0 %, Resp=23 B/min, Comment=nsr 01:28 PM Estimated Blood Loss: less than 20cc [email or web address] 01:28 PM Post ECG NSR jcallihan 01:28 PM Post Blood Pressure 110/60 jcallihan 01:29 PM 13:28 Post Pulses Bilateral DP & PT 2+ [email or web address] 01:30 PM HR=80 bpm, NIBP=95/42 mmhg, SpO2=99 %, Resp=15 B/min 01:35 PM Information taught Cardiac Cath and PCI jcallihan 01:35 PM Education needs Procedure, Plan of Care, and Responsibilities of Patient in Care jcallihan 01:35 PM Learning barriers :None jcallihan 01:35 PM Education Methods Verbal jcallihan 01:35 PM Education evaluation Able to repeat information jcallihan 01:35 PM Site status No bleeding/hematoma - Rt Groin as reported by Sites, Rosa RT (R) at 13:35 [email or web address] 01:35 PM Opsite applied jcallihan 01:36 PM Report given to Danny MORENO Pt taken to ICU Room #7. 13:35 jcallihan 01:36 PM Plavix, Effient or Brilinta given Yes [email or web address] 01:36 PM Patient out of room: 13:36 jcallihan 01:36 PM Family placed in consult room. [email or web address] 01:36 PM Complications: None [email or web address] 01:44 PM Lesion found in Mid LAD. Pre Stenosis: 100 Pre REHAN Flow: 0: No Flow/No perfusion jcallihan 01:44 PM Lesion found in Distal LAD. Pre Stenosis: 100 Pre REHAN Flow: 0: No Flow/No perfusion jcallihan 01:44 PM Mid/Distal Left Anterior Descending Coronary Artery and diagonal branches with 100% stenosis. If graft is supplying this area, 0 % stenosis [email or web address] Complications Complication None None None Hemodynamics Pressures Site Systolic/A Wave Diastolic/V Wave Mean AO 90 18 52 LV -18 -18 -18 LV 99 24 28 AO 97 70 84 AO 91 63 77 AO 96 58 78 AO 85 59 72 AO 103 77 90 AO 87 63 76 AO 95 68 82 AO 95 64 78 AO 91 48 66 LV 99 27 27 AO 91 65 78 Post Procedure Information Blood Pressure: 110/60 mmHg Rhythm: NSR Post procedural instructions were given Closure Device Time Device Success/Fail Manual Compression Site Checks Time Location Status Staff Sheath In? Note 01:35 PM Rt Groin No bleeding/hematoma Sites, Rosa RT (R) Pulses Time Site Pre-Procedure Post-Procedure Note 1:28:00 PM Bilateral DP & PT 2+ 2+ Updated by Lucian Cuellar RN on 02/13/2018 1:57:52 PM electronically signed on 02/13/2018 1:59:41 PM with status of Final
[2018-02-13] MEDS ORDERED: *HR* Atropine Sulfate 1 MG/10 ML SYRINGE ONE (14:29)
[2018-02-13] MEDS: 0.9 % Sodium Chloride 1,000 ML IVC SCH ×2 (14:34→22:28)
[2018-02-13] MEDS: *HR* LORazepam 2 MG/ML VIAL IVP PRN ×2 (14:47→23:09)
[2018-02-13 17:37] LABS: Basophils % 0.1 %; Hematocrit 40.1 % (35.3-44.9); Hemoglobin 13.7 g/dL (11.5-15.4); Immature Granulocytes % 0.3 % (0-4); Lymphocytes # 0.6 K/mcL (0.6-4.6); Lymphocytes % 5.2 %; Mean Corpuscular HGB Conc 34.2 g/dL (31.6-35.5); Mean Corpuscular Hemoglobin 31.3 pg (28.0-33.3); Mean Corpuscular Volume 91.6 fL (83.0-100.0); Mean Platelet Volume 10.6 fL (9.4-12.4); Monocytes # 0.4 K/mcL (0.0-1.3); Monocytes % 3.4 %; Neutrophils # 9.7 K/mcL (1.6-8.9); Platelet Count 236 K/mcL (140-400); Red Blood Count 4.38 M/mcL (3.82-4.97); Red Cell Distribution Width 11.7 % (11.5-14.5)
[2018-02-13] MEDS ORDERED: Acetaminophen 325 MG TABLET PO ONE (17:52)
[2018-02-13] MEDS: *HR* Ticagrelor 90 MG TABLET PO SCH (20:03)
[2018-02-14] MEDS: 0.9 % Sodium Chloride 1,000 ML IVC SCH ×3 (00:17→20:31)
[2018-02-14 04:42] LABS: Basophils % 0.1 %; Hematocrit 37.3 % (35.3-44.9); Hemoglobin 12.5 g/dL (11.5-15.4); Immature Granulocytes % 0.3 % (0-4); Lymphocytes # 0.7 K/mcL (0.6-4.6); Lymphocytes % 7.1 %; Mean Corpuscular HGB Conc 33.5 g/dL (31.6-35.5); Mean Corpuscular Hemoglobin 30.6 pg (28.0-33.3); Mean Corpuscular Volume 91.2 fL (83.0-100.0); Mean Platelet Volume 10.4 fL (9.4-12.4); Monocytes # 0.8 K/mcL (0.0-1.3); Monocytes % 7.7 %; Neutrophils # 8.4 K/mcL (1.6-8.9); Platelet Count 244 K/mcL (140-400); Red Blood Count 4.09 M/mcL (3.82-4.97); Red Cell Distribution Width 11.5 % (11.5-14.5); Segmented Neutrophils % 84.8 %
[2018-02-14 05:03] LABS: BUN/Creatinine Ratio 21 (6-26); Blood Urea Nitrogen 10 mg/dL (6-20); Calcium 8.8 mg/dL (8.6-10.3); Carbon Dioxide 24 mEq/L (23-29); Chloride 104 mEq/L (98-107); Glucose 124 mg/dL (70-105); Osmolality,Calculated 282 (280-300); Potassium 3.8 mEq/L (3.5-5.1); Sodium 136 mEq/L (136-145); eGFR For Non-African Americans > 60 (> 60)
[2018-02-14] MEDS: *HR* LORazepam 2 MG/ML VIAL IVP PRN ×2 (05:09→22:41)
[2018-02-14] MEDS: *HR* Ticagrelor 90 MG TABLET PO SCH ×2 (07:31→20:34)
--- NOTE | 2018-02-14 08:37 | Cardiology Progress Note ---
Date of Encounter: 02/14/18 Time of Encounter: 08:00 Assessment and Plan (1) STEMI (ST elevation myocardial infarction) Current Visit: Yes Status: Acute Patient presented with acute anterior STEMI; s/p successful defibrillation (x2) for Vfib. Presenting symptoms: acute onset midsternal chest pressure/heaviness with radiation down bilateral arms, back, and into jaw and teeth; dizziness. Reports mild chest discomfort the night before with running outside. She is 8 months from uncomplicated vaginal delivery. No significant RF for CAD. [facility] 02/13/18: s/p successful PTCA/FAB to prox and mid LAD; unsuccessful PCI to dLAD; otherwise no significant CAD, EF 30%. TTE: pending. No chest pain this morning; does report "sensation to chest." Mild-moderate amount soft ecchymosis at right groin cath site--no hematoma, palpable distal pulses. Frequent ectopy noted overnight, BB started. Keep Mg >2.0, K >4.0. Recommend LifeVest prior to discharge. Recommend uninterrupted DAPT (asa + brilinta) for a minimum of 1 year. Long discussion today regarding adverse effects of cardiac medications ( particularly brilinta, crestor) and ; unfortunately, recommend should be stopped at this time. Minimum of 3 inpatient nights. VTE prophylaxis: TEDs in place, add Heparin SC 5000 units BID. Qualifiers: Involved coronary artery: LAD coronary artery Qualified Code(s): I21.02 - ST elevation (STEMI) myocardial infarction involving left anterior descending coronary artery Discussion w patient/family: The assessment and plan as outlined above was discussed with the patient and/or family members who expressed understanding and agreement. All questions were answered. Thank you for involving us in the care of your patient. Please call with any questions. The patient will be discussed and reviewed with Dr. Escalante; changes to be made accordingly. Subjective Principal diagnosis: STEMI Interval history: Seen and examined. Patient admitted with acute anterior STEMI, s/p x2 defibrillation for Vfib in ED No chest pain/discomfort overnight. Reports "sensation" over chest this AM. Moderate amount of bruising noted to right groin cath access site. Objective Vital Signs, Last 4 Hours Temp Pulse Resp BP Pulse Ox 02/14/18 07:46 88 02/14/18 07:00 98.4 F 91 15 102/62 68 02/14/18 06:00 83 15 106/64 99 02/14/18 05:00 86 18 112/68 97 General: Conversant, No Apparent Distress HEENT: Atraumatic, Normocephaly, Mucus Membranes Moist Cardiac: Reg Rate and Rhythm, Normal S1 and S2 Lungs: Normal Breath Sounds Neuro: Alert and responsive Abdomen: Soft Skin: No rashes noted on visualized skin Musculoskeletal: No Chest Wall Tenderness Extremities: No Edema, Normal Pulses Other: right groin cath site: moderate amount of ecchymosis at site. Dressing C/D/I. + 2 distal pulses (PT/DP) Results 02/14/18 04:31 02/14/18 04:31 Lab Results 02/13/18 02/14/18 02/14/18 17:26 04:31 04:31 WBC 10.6 D 9.9 Hgb 13.7 12.5 Hct 40.1 37.3 Plt Count 236 244 Sodium 136 Potassium 3.8 Chloride 104 Carbon Dioxide 24 BUN 10 Creatinine 0.47 L Glucose 124 H Calcium 8.8 Active Medications Carvedilol (Coreg) 3.125 mg PO BIDWM CHRISTOPHER Stop: 08/15/18 17:01 Last Admin: 02/14/18 08:39 Dose: Not Given Sodium Chloride (0.9 % Sodium Chloride) 1,000 mls @ 100 mls/hr IVC .Q10H CHRISTOPHER Stop: 08/15/18 14:31 Last Admin: 02/14/18 07:33 Dose: 100 mls/hr Dopamine HCl/Dextrose (Dopamine Premix 400mg/250ml) 400 mg in 250 mls @ 11.056 mls/hr IVC .[id number] CHRISTOPHER; 5 MCG/KG/MIN PRN Reason: Protocol Stop: 08/15/18 17:01 Last Titration: 02/13/18 18:53 Dose: 0 mcg/kg/min, 0 mls/hr Lisinopril (Zestril) 2.5 mg PO DAILY CHRISTOPHER Stop: 08/16/18 09:01 Lorazepam (Ativan) 0.5 mg IVP Q6HR PRN PRN Reason: Anxiety Stop: 08/15/18 14:39 Last Admin: 02/14/18 05:09 Dose: 0.5 mg Rosuvastatin Calcium (Crestor) 40 mg PO HS CHRISTOPHER Stop: 08/15/18 21:01 Last Admin: 02/13/18 20:03 Dose: 40 mg Ticagrelor (Brilinta) 90 mg PO BID CHRISTOPHER Stop: 08/15/18 21:01 Last Admin: 02/14/18 07:31 Dose: 90 mg - Imaging and Cardiology Echo: pending Cardiac cath: report reviewed Other Results: Telemetry review: avg HR=76 SR. Frequent ectopy noted. - EKG Interpretation EKG results cardiology: personally reviewed - VTE Reasons for not Prescribing Prophylaxis: Not indicated-Anticoagulated or INR therapeutic Consult Discharge Plan - Plan Referrals: Virginia Sanabria DO [Primary Care Provider] -
[2018-02-14] MEDS: Magnesium Oxide 400 MG TABLET PO SCH ×2 (09:08→20:34)
[2018-02-14] MEDS: *HR* Heparin 5,000 UNIT/ML VIAL SQ SCH ×2 (09:08→18:27)
[2018-02-14] MEDS: Aspirin Enteric Coated 81 MG Tablet PO SCH (09:08)
[2018-02-14] MEDS: Metoprolol XL (24 HR) Succ 25 MG TAB.ER.24H PO SCH (09:22)
[2018-02-14] MEDS ORDERED: Saline Nasal Spray 44 ML BOTTLE NS PRN (09:31)
[2018-02-14] MEDS ORDERED: Perflutren Lipid Microsphere 1.3 ML in 0.9 % Sodium Chloride 8.7 ML IVP ONE (09:46)
[2018-02-14] MEDS: Acetaminophen 325 MG TABLET PO PRN (20:33)
[2018-02-15 03:21] LABS: Basophils % 0.3 %; Eosinophils % 0.3 %; Hematocrit 38.6 % (35.3-44.9); Immature Granulocytes % 0.3 % (0-4); Lymphocytes # 1.6 K/mcL (0.6-4.6); Lymphocytes % 21.3 %; Mean Corpuscular HGB Conc 33.7 g/dL (31.6-35.5); Mean Corpuscular Hemoglobin 30.9 pg (28.0-33.3); Mean Corpuscular Volume 91.7 fL (83.0-100.0); Monocytes # 0.7 K/mcL (0.0-1.3); Monocytes % 9.6 %; Neutrophils # 5.2 K/mcL (1.6-8.9); Platelet Count 217 K/mcL (140-400); Red Blood Count 4.21 M/mcL (3.82-4.97); Red Cell Distribution Width 11.9 % (11.5-14.5); Segmented Neutrophils % 68.2 %
[2018-02-15 03:39] LABS: BUN/Creatinine Ratio 13 (6-26); Blood Urea Nitrogen 7 mg/dL (6-20); Calcium 8.9 mg/dL (8.6-10.3); Carbon Dioxide 29 mEq/L (23-29); Chloride 107 mEq/L (98-107); Glucose 110 mg/dL (70-105); Osmolality,Calculated 291 (280-300); Potassium 3.6 mEq/L (3.5-5.1); Sodium 141 mEq/L (136-145); eGFR For Non-African Americans > 60 (> 60)
[2018-02-15] MEDS: Acetaminophen 325 MG TABLET PO PRN ×2 (04:46→08:49)
[2018-02-15] MEDS: *HR* Heparin 5,000 UNIT/ML VIAL SQ SCH ×2 (06:30→17:54)
[2018-02-15] MEDS: 0.9 % Sodium Chloride 1,000 ML IVC SCH (06:33)
--- NOTE | 2018-02-15 08:35 | Invasive Diagnostic Lab Proc ---
Name: Thao Eastman Date of Study: 02/13/2018 Date: 1985 Ht: 64.2in Medical Record#: [id number] Age: 32 Wt: 129.41lb Gender: Female BSA: 1.63 Order #: [id number] BMI: 22.09 Physicians Procedure Physician: Francis Issa DO Referring MD: Virginia Sanabria DO Referring MD: Staff Name Position Time In [facility] Lucian RN Monitor 12:23 PM Gabriel Alexandra RN Bank Worker 12:23 PM [facility], Rosa RT (R) Scrub 12:23 PM Indications Indication STEMI Procedures Performed Procedure L HRT ARTERY/VENTRICLE ANGIO PRQ CARD REVASC NM 1 VSL Pre-Procedure Checklist Informed consent is complete signed and on chart. H&P is on chart. ID band is on and ID verified with patient. Pt not NPO for procedure and MD aware. The procedure was described for the patient and questions were answered. ECG is on chart. Rhythm: NSR Plan of Care Patient will tolerate the procedure without complications. Adequate level of comfort will be maintained. Hemodynamics will remain stable Patient will recover from procedure without complications. Respiratory function will be maintained. Cardiac rhythm will remain stable. Patient temperature will be maintained. Patient and/or family have verbalized understanding of the procedure. Patient Education Chief Complaint/Reason for Test: Cardiac Cath Developmental Category: Adult (18-64 years) Developmentally Appropriate for Age: Yes Learning Barriers: None Education Needs: Procedure Education Method: Verbal Information Taught: Cardiac Cath Educational Evaluation: Able to repeat information Intravenous Access Time IV Size Location DC'd Fluid/Drip Rate Units RN 18g 1 1/4" Patent On Arrival Rt Antecubital Gabriel Alexandra RN 18g 1 1/4" Patent On Arrival Lt Antecubital 0.9NaCl 25 ml/hr Gabriel Alexandra RN Allergies Erythromycin Base Erythromycin Vital Signs Time BP (mmHg) HR (bpm) O2 Sat. RR (bpm) LOC 12:24 PM / % 5 = Fully awake and oriented or at pre-proc level 12:24 PM / % 4 = Oriented but drowsy 12:39 PM / % 4 = Oriented but drowsy 01:05 PM 106 / 49 69 96 % 15 01:10 PM 110 / 50 67 100 % 15 01:15 PM 98 / 53 83 95 % 15 01:21 PM 118 / 57 72 98 % 9 01:25 PM 80 / 61 80 % 30 01:27 PM 110 / 60 83 98 % 23 01:30 PM 95 / 42 80 99 % 15 12:20 PM 112 / 60 80 99 % 16 12:25 PM 106 / 42 77 100 % 26 12:30 PM 103 / 53 84 100 % 17 12:35 PM 105 / 56 84 % 24 12:40 PM 104 / 58 79 100 % 13 12:45 PM 105 / 59 78 100 % 20 12:50 PM 105 / 50 74 100 % 20 12:55 PM 101 / 45 78 100 % 15 01:00 PM 104 / 54 77 98 % 11 Procedural Medications Time Medication Dose Units Method Given By 12:24 PM Oxygen 2 L/min nasal cannula Gabriel Alexandra RN 12:27 PM Lidocaine 2% 10 ml Subcutaneous Francis Issa DO 12:33 PM Heparin 2000 units Intravenous Gabriel Alexandra RN 12:39 PM Versed 1 mg Intravenous Gabriel Alexandra RN 12:39 PM 0.9NaCl 500 ml bolus 999 ml/hr Intravenous Gabriel Alexandra RN 12:39 PM Dopamine 5 mcg/kg/min Intravenous Gabriel Alexandra RN 12:42 PM Nitroglycerin 100 mcg Intracoronary Francis Issa DO 12:26 PM Amiodarone 150 mg Intravenous Gabriel Alexandra RN 12:26 PM Amiodarone 33.3 ml/hr Intravenous Gabriel Alexandra RN ASA Classification: Emergent Procedure: ASA score is assumed Carli Score Preprocedure Postprocedure Activity 2- Moves 4 extremities sustained head lift Activity 2- Moves 4 extremities sustained head lift Circulation 2- SBP +/= 20 points of pre-anesthetic level Circulation 2- SBP +/= 20 points of pre-anesthetic level Consciousness 2- Awake and alert oriented x 3 Consciousness 2- Awake and alert oriented x 3 O2 Saturation 2- Able to maintain O2 satruation of 92% on room air O2 Saturation 2- Able to maintain O2 satruation of 92% on room air Respiratory 2- Able to deep breathe and cough well Respiratory 2- Able to deep breathe and cough well Total Score 10 Total Score 10 Contrast Agent: Isovue Diagnostic Contrast: 170 ml Total Contrast: 170 ml Fluoro Dose: 4659 mGy Activated Clotting Time Time Seconds to Clot 12:33 PM 156 12:52 PM 302 01:19 PM 198 Procedure Log Time Note Enter By 12:07 PM CathStat 12:16 PM Pt arrived to director of laboratory operations 2 at 12:16 [facility] 12: PM Physician arrived 12: [facility] 12: PM Meet and charissaet completed [facility] : PM Sign in performed according to hospital policy. Informed consent was obtained. [facility] 12: PM Procedure start : [facility] 12: PM Case Start 12: PM Vitals capture started with the following parameters, Patient=Adult, Interval=5 min, Initial Ekgjczip=530 mmHg, Deflation Rate=5 mmHg, Cuff placed on Right Arm 12:20 PM HR=80 bpm, MOKE=774/60 mmhg, SpO2=99.0 %, Resp=16 B/min, Comment=nsr : PM Lucian Cuellar RN Position: Monitor Time in: [facility] : PM Gabriel Alexandra RN Position: Bank Worker Time in: [facility] : PM Rosa Jones RT (R) Position: Scrub Time in: [facility] 12: PM Patient charges- Angio tray pack, Navilyst 3mm J, Pulse Oximetry and ACIST tubing and transducer [facility] PM Time: 12:24 Patient comfortable and pain free: Yes [facility] : PM Time: 12:24LOC: 5 = Fully awake and oriented or at pre-proc level [facility] : PM Time: 12:24 Oxygen on at 2 L/min per nasal cannula by Gabriel Alexandra RN [facility] : PM Pt defibrillated at 200 joules x 1 for V-Fib [facility] : PM Pt defibrillated at 360 joules x 1, return of NSR [facility] : PM HR=77 bpm, OEGO=039/42 mmhg, DiA7=334.0 %, Resp=26 B/min, Comment=nsr 12: PM Time: : Amiodarone 150 mg Intravenous Given by Gabriel Alexandra RN [facility] : PM Time: 12: Amiodarone 33.3 ml/hr Intravenous Given by Gabriel Alexandra RN [facility] 12: PM Critical cardiac patient with acute NM was brought emergently to the cardiac lab manager for immediate coronary angiography and intervention if clinically indicated. [facility] : PM Time out was performed according to hospital policy. Conscious sedation and anesthesia was achieved (see medication log with in this report above) [email or web address] 12:27 PM Time: 12:27 10 ml Lidocaine 2% to right groin Subcutaneous Given by Francis Issa DO jcallihan 12:27 PM Micro-Introducer Kit utilized for sheath placement [email or web address] 12:28 PM 5Fr FR 4 catheter inserted over the wire [facility] jcallihan 12:28 PM Access obtained by percutaneous puncture. 6Fr 10cm [employer] [place] sheath placed in right Femoral artery. [id number] jcallihan 12:29 PM Recorded Pressure: Ao, HR=86, Condition=Condition 1 (Aorta) Ao 90/18/52 12:29 PM Recorded Pressure: LV, LV, HR=76, Condition=Condition 1 (Left Ventricle) LV -18/-18/-18, (Left Ventricle) LV 99/24/28 12:29 PM Recorded Pressure: LV, Ao, HR=80, Condition=Condition 1 (Left Ventricle) LV 99/27/27, (Aorta) Ao 91/65/78 12:29 PM Catheter crossed the aortic valve and was selectively placed in the left ventricle. Pressures recorded on pullback for left heart catheterization. [email or web address] 12:29 PM Hand injected LV gram jcallihan 12:30 PM repositioned to RCA [email or web address] 12:30 PM RCA angiography performed in multiple views. [email or web address] 12:30 PM Catheter removed jcallihan 12:30 PM HR=84 bpm, QXZB=009/53 mmhg, KrP1=010.0 %, Resp=17 B/min, Comment=nsr 12:30 PM 6Fr JL4 Runway guide catheter was used to cannulate the PCI vessel successfully. reused? No jcallihan 12:31 PM Recorded Pressure: Ao, HR=84, Condition=Condition 1 (Aorta) Ao 97/70/84 12:31 PM Coronary Dominance: right [email or web address] 12:32 PM PCI Status Emergency jcallihan 12:33 PM .014 ChoICE PT Extra Support 300cm guide wire across target lesion- successful. reused? No [email or web address] 12:33 PM Inflation device was opened. [email or web address] 12:33 PM Recorded Pressure: Ao, HR=90, Condition=Condition 1 (Aorta) Ao 91/63/77 12:33 PM At 12:33 the ACT was 156 seconds. [email or web address] 12:33 PM Time: 12:33 Heparin 2000 units Intravenous Given by Gabriel Alexandra RN 12:34 PM Lesion found in Proximal LAD. Pre Stenosis: 100 Pre REHAN Flow: 0: No Flow/No perfusion jcallihan 12:34 PM Proximal Left Anterior Descending Coronary Artery with 100% stenosis. If graft is supplying this territory, 0 % stenosis. [email or web address] 12:34 PM Recorded Pressure: Ao, HR=83, Condition=Condition 1 (Aorta) Ao 96/58/78 12:35 PM HR=84 bpm, TVPI=080/56 mmhg, Resp=24 B/min, Comment=nsr 12:36 PM 2.0 mm x 20 mm Emerge Monorail balloon across target lesion- successful. reused? No jcallihan 12:36 PM Balloon inflated @ 2 albina for 26 seconds jcallihan 12:37 PM Balloon inflated @ 9 albina for 15 seconds jcallihan 12:39 PM Time: 12:39 Versed 1 mg Intravenous Given by Gabriel Alexandra RN 12:39 PM Balloon catheter removed intact. [email or web address] 12:39 PM Time: 12:24 Patient comfortable and pain free: Yes [email or web address] 12:39 PM Time: 12:24LOC: 4 = Oriented but drowsy jcallihan 12:39 PM Time: 12:39 0.9NaCl 500 ml bolus 999 ml/hr Intravenous Given by Gabriel Alexandra RN 12:40 PM Time: 12:39 Dopamine 5 mcg/kg/min Intravenous Given by Gabriel Alexandra RN 12:40 PM HR=79 bpm, YOWG=427/58 mmhg, QeS9=032.0 %, Resp=13 B/min, Comment=nsr 12:41 PM 2.25mm x 24mm Synergy drug-eluting stent across target lesion- successful Lot #[id number] jcallihan 12:41 PM Stent deployed @ 14 albina for 17 seconds [email or web address] 12:41 PM Recorded Pressure: Ao, HR=79, Condition=Condition 1 (Aorta) Ao 85/59/72 12:42 PM Time: 12:42 Nitroglycerin 100 mcg Intracoronary Given by Francis Issa DO jcallihan 12:43 PM Stent delivery system removed intact. [email or web address] 12:43 PM 2.25mm x 16mm Synergy drug-eluting stent across target lesion- successful Lot #[id number] jcallihan 12:44 PM Stent deployed @ 14 albina for 17 seconds [email or web address] 12:45 PM Stent balloon reinflated @ 14 albina for 10 seconds jcallihan 12:45 PM HR=78 bpm, UUXR=901/59 mmhg, UjJ6=219.0 %, Resp=20 B/min, Comment=nsr 12:46 PM Stent delivery system removed intact. [email or web address] 12:50 PM Re-inserted 2.0 balloon jcallihan 12:50 PM HR=74 bpm, FMFZ=850/50 mmhg, OsO1=625.0 %, Resp=20 B/min, Comment=nsr 12:50 PM Balloon inflated @ 6 albina for 23 seconds jcallihan 12:51 PM Recorded Pressure: Ao, HR=77, Condition=Condition 1 (Aorta) Ao 103/77/90 12:51 PM Balloon catheter removed intact. [email or web address] 12:52 PM Guide wire removed intact. [email or web address] 12:52 PM At 12:52 the ACT was 302 seconds. [email or web address] 12:54 PM Time: 12:39LOC: 4 = Oriented but drowsy jcallihan 12:54 PM Time: 12:39 Patient comfortable and pain free: Yes [email or web address] 12:55 PM HR=78 bpm, BIKW=027/45 mmhg, HeP7=743.0 %, Resp=15 B/min, Comment=nsr 12:56 PM Recorded Pressure: Ao, HR=65, Condition=Condition 1 (Aorta) Ao 87/63/76 12:59 PM NIBP STAT measurement started. 01:00 PM HR=77 bpm, JLKE=789/54 mmhg, SpO2=98.0 %, Resp=11 B/min, Comment=nsr 01:00 PM Guide wire re-inserted jcallihan 01:01 PM re-inserting balloon catheter jcallihan 01:02 PM Balloon catheter removed intact. jcallihan 01:04 PM Guide wire removed intact. jcallihan 01:05 PM .014 ChoICE PT Extra Support 300cm guide wire across target lesion- successful. reused? No jcallihan 01:05 PM HR=69 bpm, ZMWB=603/49 mmhg, SpO2=96.0 %, Resp=15 B/min, Comment=nsr 01:06 PM Recorded Pressure: Ao, HR=72, Condition=Condition 1 (Aorta) Ao 95/68/82 01:09 PM 2.0mm x 8mm Multi-Link Mini Vision RX Stent bare metal stent across target lesion- successful Lot #[id number] [email or web address] 01:10 PM HR=67 bpm, XLTC=783/50 mmhg, RpZ5=116.0 %, Resp=15 B/min, Comment=nsr 01:11 PM Recorded Pressure: Ao, HR=68, Condition=Condition 1 (Aorta) Ao 95/64/78 01:13 PM Stent deployed @ 14 albina for 16 seconds [email or web address] 01:13 PM Stent deployed @ 16 albina for 16 seconds [email or web address] 01:14 PM Recorded Pressure: Ao, HR=80, Condition=Condition 1 (Aorta) Ao 91/48/66 01:15 PM Stent delivery system removed intact. [email or web address] 01:15 PM HR=83 bpm, NIBP=98/53 mmhg, SpO2=95.0 %, Resp=15 B/min 01:15 PM Guide wire removed intact. [email or web address] 01:15 PM Groin shot obtained, contrast injected jcallihan 01:15 PM Guide catheter removed intact. [email or web address] 01:15 PM Procedure completed at 13:15 02/13/2018 [email or web address] 01:16 PM Did you address REHAN flow and Dominance? Yes [email or web address] 01:17 PM Isovue 370 - 200ml,1 Bottle(s) used. [email or web address] 01:18 PM Sign out completed: Radiation Dose 471.96 mGy, 4659 cGy/cm2 Fluoro Time: 14.4 Isovue 370 - 200ml contrast 170 ml given by Francis Issa DO. Complications: None. The patient was discharged out of the lab manager in stable condition. Cardiac Rehab Consult needed: YesConfirmed administered medications: Yes [email or web address] 01:18 PM Sheath left in place to be pulled on floor/holding areaV+Pad jcallihan 01:19 PM At 13:19 the ACT was 198 seconds. [email or web address] 01:21 PM HR=72 bpm, IWGF=202/57 mmhg, SpO2=98 %, Resp=9 B/min 01:25 PM HR=80 bpm, NIBP=80/61 mmhg, Resp=30 B/min 01:26 PM NIBP STAT measurement started. 01:27 PM HR=83 bpm, TQAI=904/60 mmhg, SpO2=98.0 %, Resp=23 B/min, Comment=nsr 01:28 PM Estimated Blood Loss: less than 20cc jcallihan 01:28 PM Post ECG NSR jcallihan 01:28 PM Post Blood Pressure 110/60 jcallihan 01:29 PM 13:28 Post Pulses Bilateral DP & PT 2+ [email or web address] 01:30 PM HR=80 bpm, NIBP=95/42 mmhg, SpO2=99 %, Resp=15 B/min 01:35 PM Information taught Cardiac Cath and PCI jcallihan 01:35 PM Education needs Procedure, Plan of Care, and Responsibilities of Patient in Care jcallihan 01:35 PM Learning barriers :None jcallihan 01:35 PM Education Methods Verbal jcallihan 01:35 PM Education evaluation Able to repeat information jcallihan 01:35 PM Site status No bleeding/hematoma - Rt Groin as reported by Sites, Rosa RT (R) at 13:35 jcallihan 01:35 PM Opsite applied jcallihan 01:36 PM Report given to Danny MORENO Pt taken to ICU Room #7. 13:35 jcallihan 01:36 PM Plavix, Effient or Brilinta given Yes [email or web address] 01:36 PM Patient out of room: 13:36 jcallihan 01:36 PM Family placed in consult room. [email or web address] 01:36 PM Complications: None jcallihan :44 PM Lesion found in Mid LAD. Pre Stenosis: 100 Pre REHAN Flow: 0: No Flow/No perfusion jcallihan :44 PM Lesion found in Distal LAD. Pre Stenosis: 100 Pre REHAN Flow: 0: No Flow/No perfusion jcallihan 01:44 PM Mid/Distal Left Anterior Descending Coronary Artery and diagonal branches with 100% stenosis. If graft is supplying this area, 0 % stenosis jcallihan Complications Complication None None None Hemodynamics Pressures Site Systolic/A Wave Diastolic/V Wave Mean AO 90 18 52 LV -18 -18 -18 LV 99 24 28 AO 97 70 84 AO 91 63 77 AO 96 58 78 AO 85 59 72 AO 103 77 90 AO 87 63 76 AO 95 68 82 AO 95 64 78 AO 91 48 66 LV 99 27 27 AO 91 65 78 Post Procedure Information Blood Pressure: 110/60 mmHg Rhythm: NSR Post procedural instructions were given Closure Device Time Device Success/Fail Manual Compression Site Checks Time Location Status Staff Sheath In? Note 01:35 PM Rt Groin No bleeding/hematoma Sites, Rosa RT (R) Pulses Time Site Pre-Procedure Post-Procedure Note 1:28:00 PM Bilateral DP & PT 2+ 2+ Updated by Lucian Cuellar RN on 02/15/2018 8:28:31 AM electronically signed on 02/15/2018 8:30:02 AM with status of Final
[2018-02-15] MEDS: *HR* Ticagrelor 90 MG TABLET PO SCH ×2 (08:49→19:57)
[2018-02-15] MEDS: Metoprolol XL (24 HR) Succ 25 MG TAB.ER.24H PO SCH (08:49)
[2018-02-15] MEDS: Aspirin Enteric Coated 81 MG Tablet PO SCH (08:49)
--- NOTE | 2018-02-15 09:56 | Cardiology Progress Note ---
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 Reports mild chest discomfort the night before with running outside. She is 8 months from uncomplicated vaginal delivery. No significant RF for CAD. LHC 02/13/18: s/p successful PTCA/FAB to prox and mid LAD; unsuccessful PCI to dLAD; otherwise no significant CAD, EF 30%. TTE 02/14/18: LVEF 35-40%, no LV thrombus, moderate LVDD, normal RV structure and function, mild TR, no PH, trivial pericardial effusion along the inferior wall of the RV; apex, apical inferior, apical anterior, mid anterior, apical septal, mid inferior septal, apical lateral and mid anterior septal glover were hypokinetic. No chest pain or events overnight. BP tolerating Toprol XL. Mild-moderate amount soft ecchymosis at right groin cath site with small quarter sized hematoma with well defined boundaries. Tenderness present. H/H stable. Palpable distal pulses No ectopy or NSVT noted overnight. Keep Mg >2.0, K >4.0. Recommend LifeVest prior to discharge--order placed. Recommend uninterrupted DAPT (asa + brilinta) for a minimum of 1 year. Long discussion today regarding adverse effects of cardiac medications ( particularly brilinta, crestor) and ; unfortunately, recommend should be stopped at this time. Orders placed to step down to 2N this afternoon after 48 hours in ICU. Minimum of 3 inpatient nights. VTE prophylaxis: TEDs in place, add Heparin SC 5000 units BID. Qualifiers: Involved coronary artery: LAD coronary artery Qualified Code(s): I21.02 - ST elevation (STEMI) myocardial infarction involving left anterior descending coronary artery (2) Ischemic cardiomyopathy Current Visit: Yes Status: Acute Plan as above. Repeat TTE to eval LVEF in 40 days. Discussion w patient/family: The assessment and plan as outlined above was discussed with the patient and/or family members who expressed understanding and agreement. All questions were answered. Thank you for involving us in the care of your patient. Please call with any questions. The patient will be discussed and reviewed with Dr. Hidalgo; changes to be made accordingly. Subjective Principal diagnosis: STEMI Interval history: Seen and examined. 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 NO chest pain or events overnight. Objective Vital Signs, Last 4 Hours Temp Pulse BP Pulse Ox 02/15/18 09:06 99 95/76 100 02/15/18 09:00 101 02/15/18 08:42 106 91/66 97 02/15/18 07:40 98.3 F 02/15/18 06:00 98 103/70 98 General: Conversant HEENT: Atraumatic, Normocephaly Cardiac: Reg Rate and Rhythm, Normal S1 and S2 Lungs: Normal Breath Sounds Neuro: Alert and responsive Abdomen: Soft Skin: Other (redness right upper chest wall; left flank s/p defribillation) Extremities: No Edema, Normal Pulses Other: right groin: dressing removed; moderate amount of ecchymosis with small, quarter sized hematoma. +2 PT/DP pulses. Results 02/15/18 02:50 02/15/18 02:50 Lab Results 02/15/18 02/15/18 02:50 02:50 WBC 7.7 Hgb 13.0 Hct 38.6 Plt Count 217 Sodium 141 Potassium 3.6 Chloride 107 Carbon Dioxide 29 BUN 7 Creatinine 0.53 L Glucose 110 H Calcium 8.9 Magnesium 2.0 Active Medications Acetaminophen (Tylenol) 650 mg PO Q6HR PRN PRN Reason: Fever Stop: 08/16/18 18:48 Last Admin: 02/15/18 08:49 Dose: 650 mg Aspirin (Aspirin Ec) 81 mg PO DAILY [facility] Stop: 08/16/18 09:01 Last Admin: 02/15/18 08:49 Dose: 81 mg Heparin Sodium (Porcine) (Heparin) 5,000 unit SQ Q12HCO [facility]STOPHER Stop: 08/16/18 09:01 Last Admin: 02/15/18 06:30 Dose: 5,000 unit Lisinopril (Zestril) 2.5 mg PO DAILY [facility] Stop: 08/16/18 09:01 Last Admin: 02/15/18 08:49 Dose: 2.5 mg Lorazepam (Ativan) 0.5 mg IVP Q6HR PRN PRN Reason: Anxiety Stop: 08/15/18 14:39 Last Admin: 02/14/18 22:41 Dose: 0.5 mg Metoprolol Succinate (Toprol Xl) 25 mg PO DAILY [facility] Stop: 08/16/18 09:16 Last Admin: 02/15/18 08:49 Dose: 25 mg Potassium Chloride (Potassium Chloride) 40 meq PO BIDWM CHRISTOPHER Stop: 08/17/18 09:01 Last Admin: 02/15/18 08:54 Dose: 40 meq Rosuvastatin Calcium (Crestor) 40 mg PO HS CH[facility]STOPHER Stop: 08/15/18 21:01 Last Admin: 02/14/18 20:34 Dose: 40 mg Sodium Chloride ([place]ner Nasal Leroy) 2 spray NS Q2H PRN PRN Reason: Congestion Stop: 08/16/18 09:32 Last Admin: 02/14/18 10:48 Dose: 2 spray Ticagrelor (Brilinta) 90 mg PO BID CHRISTOPHER Stop: 08/15/18 21:01 Last Admin: 02/15/18 08:49 Dose: 90 mg - Imaging and Cardiology Echo: report reviewed Cardiac cath: report reviewed Other Results: 12 hour tele: avg HR=99. No events overnight. - EKG Interpretation EKG results cardiology: personally reviewed - VTE Reasons for not Prescribing Prophylaxis: Not indicated-Anticoagulated or INR therapeutic Documentation of Mechanical Device: Graduated compression elastic hosiery Consult Discharge Plan - Plan Referrals: Virginia Sanabria DO [Primary Care Provider] -
--- NOTE | 2018-02-15 11:15 | Electrocardiograph Report ---
[address] [place] [address] Test Date: 2018-02-14 Pat Name: Thao Eastman Department: 112 Room: [facility] Gender: F Regrader: : 1985 Requested By: Francis Issa Order Number: [id number] Reading MD: Kim Purdy Measurements Intervals [place] Rate: 91 P: 69 NE: 163 QRS: -38 QRSD: 87 T: 116 QT: 387 QTc: 435 Interpretive Statements SINUS RHYTHM ANTEROSEPTAL MYOCARDIAL INFARCTION, PROBABLY RECENT ACUTE IN Electronically Signed On 02-15-2018 11:13:27 EDT by Kim Purdy
--- NOTE | 2018-02-15 13:04 | Electrocardiograph Report ---
[address] [place], [place] [address] Test Date: 2018-02-13 Pat Name: Thao Eastman Department: 112 Room: [facility] Gender: F Idea Man: ARLENE : 1985 Requested By: Misbah Ramirez Order Number: [id number] Reading MD: Kim Purdy Measurements Intervals [place] Rate: 75 P: 70 [place]: 179 QRS: 59 QRSD: 82 T: 53 QT: 418 QTc: 447 Interpretive Statements SINUS RHYTHM ANTERIOR MYOCARDIAL INFARCTION, POSSIBLY ACUTE ACUTE [place] Electronically Signed On 02-15-2018 13:02:39 EDT by Kim Purdy
--- NOTE | 2018-02-15 13:05 | Electrocardiograph Report ---
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
--- NOTE | 2018-02-15 13:10 | Electrocardiograph Report ---
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
[2018-02-15] MEDS ORDERED: Saline Nasal Spray 44 ML BOTTLE NS PRN (16:12)
[2018-02-15] MEDS ORDERED: *HR* LORazepam 2 MG/ML VIAL IVP PRN (16:12)
[2018-02-15] MEDS ORDERED: Acetaminophen 325 MG TABLET PO PRN (16:12)
[2018-02-15] MEDS: Multivit/Ca/Min/Fe/FA 1 TAB TABLET PO SCH (17:54)
[2018-02-16 04:17] LABS: Basophils % 0.5 %; Eosinophils # 0.1 K/mcL (0.0-0.6); Eosinophils % 0.8 %; Hematocrit 38.3 % (35.3-44.9); Hemoglobin 12.9 g/dL (11.5-15.4); Immature Granulocytes % 0.3 % (0-4); Lymphocytes # 1.5 K/mcL (0.6-4.6); Mean Corpuscular HGB Conc 33.7 g/dL (31.6-35.5); Mean Corpuscular Hemoglobin 30.9 pg (28.0-33.3); Mean Corpuscular Volume 91.8 fL (83.0-100.0); Mean Platelet Volume 10.9 fL (9.4-12.4); Monocytes # 0.7 K/mcL (0.0-1.3); Monocytes % 10.5 %; Neutrophils # 4.4 K/mcL (1.6-8.9); Platelet Count 217 K/mcL (140-400); Red Blood Count 4.17 M/mcL (3.82-4.97); Red Cell Distribution Width 11.7 % (11.5-14.5); Segmented Neutrophils % 65.9 %
[2018-02-16 04:40] LABS: BUN/Creatinine Ratio 16 (6-26); Blood Urea Nitrogen 9 mg/dL (6-20); Calcium 9.2 mg/dL (8.6-10.3); Carbon Dioxide 24 mEq/L (23-29); Chloride 106 mEq/L (98-107); Glucose 107 mg/dL (70-105); Osmolality,Calculated 285 (280-300); Potassium 4.1 mEq/L (3.5-5.1); Sodium 138 mEq/L (136-145); eGFR For Non-African Americans > 60 (> 60)
[2018-02-16 04:55] LABS: Thyroid Stimulating Hormone 3.202 mcIU/mL (0.340-5.600)
[2018-02-16 05:22] LABS: Albumin/Globulin Ratio 1.7 (1.1-2.2); Bilirubin,Direct 0.1 mg/dL (0.0-0.2); Bilirubin,Indirect 0.6 mg/dL (0.0-1.2); Bilirubin,Total 0.7 mg/dL (0.3-1.0); Chol/HDL Ratio 1.6 (0-4.9); Globulin 2.3 g/dL (2.4-3.5); Total Protein 6.3 g/dL (6.4-8.9)
[2018-02-16] MEDS: *HR* Heparin 5,000 UNIT/ML VIAL SQ SCH (05:55)
[2018-02-16] MEDS: Multivit/Ca/Min/Fe/FA 1 TAB TABLET PO SCH (08:22)
[2018-02-16] MEDS: *HR* Ticagrelor 90 MG TABLET PO SCH (08:22)
[2018-02-16] MEDS ORDERED: Aspirin Enteric Coated 81 MG Tablet PO SCH (09:00)
[2018-02-16] MEDS ORDERED: Metoprolol XL (24 HR) Succ 25 MG TAB.ER.24H PO SCH (09:00)
[2018-02-16 11:43] VITALS: BP 101/73
--- NOTE | 2018-02-16 13:21 | Discharge Summary ---
Orders not resulted at time of discharge: Pending orders 02/14/18 19:00 Culture,Blood [BC] Stat Date of Encounter: 02/16/18 Time of Encounter: 13:17 - Discharge Diagnosis (1) STEMI (ST elevation myocardial infarction) Priority: Primary Status: Acute Qualifiers: Involved coronary artery: LAD coronary artery Qualified Code(s): I21.02 - ST elevation (STEMI) myocardial infarction involving left anterior descending coronary artery (2) Ischemic cardiomyopathy Priority: Primary Status: Acute - Hospital Course Hospital course: Ms. Eastman is a 32 year old female with no significant health history presented with acute onset chest pain and was found to have acute anterior STEMI. Prior to her procedure she developed vfib arrest and received successful defibrillation twice in the [employer] lab[employer]. During [facility] she underwent successful PTCA/ FAB to prox and mid LAD and unsuccessful PCI to dLAD. Otherwise no significant CAD, EF 30%. TTE showed LVEF 35-40%, no LV thrombus, moderate LVDD, normal RV structure and function, mild TR, no PH, trivial pericardial effusion along the inferior wall of the RV; apex, apical inferior, apical anterior, mid anterior, apical septal, mid inferior septal, apical lateral and mid anterior septal glover were hypokinetic. She did have a small amount residual pain after he procedure that resolved. She denies recurrent symptoms over the last 24 hours. Telemetry reviewed and was without recurrent arrhythmias. Right groin with small knot and ecchymosis. Denies pain and ambulating without problems. Low grade temp noted. Pt denies signs of infection. WBC are normal. CXR normal. Instructed to continue to monitor at home and follow with PCP. She is 8 months from uncomplicated vaginal delivery and was still breast feeding. Due to adverse effects from her new medications she was recommended to no longer breast feed. Discussed importance of uninterrupted DAPT (asa + brilinta) for a minimum of 1 year. She voices understanding. She is tolerating GDMT. Will continue toprol, statin, and aceI. She was initially recommended for life vest, due to EF now above 35% on TTE she does not qualify. Cardiac rehab was consulted. Out-pt f/u will be scheduled in one week. POC and test findings reviewed with Dr. Hidalgo. - Time Spent with Patient Total time spent providing and/or coordinating discharge services: Greater than 30 minutes (D/c summary, teaching, med rec.) - Discharge Medications Prescriptions: Aspirin Enteric Coated [Aspirin EC] 81 mg PO DAILY #30 tablet. Lisinopril [Zestril] 2.5 mg PO DAILY #30 tablet Metoprolol XL (24 HR) Succ [Toprol Xl] 25 mg PO DAILY #30 tab.er.24h Rosuvastatin [Crestor] 40 mg PO HS #30 tablet Ticagrelor [Brilinta] 90 mg PO BID #60 tablet Home Medications: Multivitamin [One Daily Multivitamin] 1 tab PO DAILY 02/15/18 [History] Aspirin Enteric Coated [Aspirin EC] 81 mg PO DAILY #30 tablet. 02/16/18 [Rx] Lisinopril [Zestril] 2.5 mg PO DAILY #30 tablet 02/16/18 [Rx] Metoprolol XL (24 HR) Succ [Toprol Xl] 25 mg PO DAILY #30 tab.er.24h 02/16/18 [ Rx] Rosuvastatin [Crestor] 40 mg PO HS #30 tablet 02/16/18 [Rx] Ticagrelor [Brilinta] 90 mg PO BID #60 tablet 02/16/18 [Rx] Allergies/Adverse Reactions: 3 Allergy/AdvReac Type Severity Reaction Status Date / Time Erythromycin Base AdvReac Intermediate See Verified 02/15/18 07:20 Comments Date of admission: 02/13/18 12:28 Primary care physician: Kiran Mitchell Consults: 02/13/18 14:10 Consult to Cardiac Rehabilitation-Phase1 [CONS] Routine Comment: Reason for Consult: AMI Call Completed: Yes Consult to Nurse Navigator [CONS] Routine Comment: Discharging clinician: Ty Trevino Anticipated date of discharge: 02/16/18 Physical Examination Vital Signs, Last 4 Hours Temp Pulse Resp BP 02/16/18 11:41 99.1 F 101 18 101/73 General: Conversant, No Apparent Distress HEENT: Atraumatic, Normocephaly, Mucus Membranes Moist Neck: No JVD, Normal carotid pulses Cardiac: Reg Rate and Rhythm, Normal S1 and S2, No Murmur Lungs: Normal Breath Sounds, No Wheeze, Rales, Rhonchi Neuro: Alert and responsive, No focal deficits noted Abdomen: Soft, Non-Tender Skin: No rashes noted on visualized skin Musculoskeletal: No Chest Wall Tenderness Extremities: No Clubbing, No Cyanosis, No Edema, Normal Pulses, Other (Right groin with mild ecchymosis. ) - Patient Status Disposition: Home, Self-Care Condition: Fair Functional capacity at discharge: independent ambulation Overall status at discharge: patient is progressing back to baseline - Discharge Instructions Follow Up With: Virginia Sanabria DO [Primary Care Provider] - 02/22/18 4:00 pm Susu Langston, STAFF NURSE [Partnered Physician] - (office will call patient at home with follow up appointment) Additional Instructions: RISK FACTORS: STOP SMOKING: If you smoke, STOP. Smoking or tobacco use significantly increases your risk of heart disease because nicotine causes the arteries to narrow or constrict. It also causes fats to stick to the artery. Your chances of having a heart attack are greatly increased if you continue to smoke. For more information, call the education line for smoking cessation 2-957-RUTIUBB EAT A LOW FAT/CHOLESTEROL/SODIUM DIET: This diet may help reduce your chances of having a heart attack. LIFTING: Avoid lifting anything more than 10 pounds for 5-7 days Prior to straining, laughing, sneezing and/or coughing, apply manual pressure directly over insertion site. ACTIVITY: You may walk or climb stairs as tolerated You can resume sexual activity as tolerated In general, you are encouraged to engage in a minimum of 30 minutes or more of moderate intensity physical activity, such as brisk walking, daily or at least 3 -4 times weekly BATHING Do not submerge the site into water (bath tub, hot tub, swimming pool) for 1 week. This can be a source for infection into the blood stream. You may shower after 24 hours SITE CARE: After 24 hours, you may remove the dressing and leave the site open to air. Keep the site clean and dry. Clean gently and pat dry. You can expect bruising and tenderness that gradually resolve within a week or two. Return to work as instructed per your physician Resume driving as instructed per physician Keep all scheduled follow up appointments Resume medications as instructed IMPORTANT: If prescribed a Platelet Aggregation Inhibitor such as, Plavix, Brilinta or Effient: Duration of therapy is minimum one year These medications are often used in combination with Aspirin in prevention of future heart attacks Never discontinue unless consult with your Supervisor Agency Appointments STROKE (CVA) Risk factors for a stroke are: Age, cigarette smoking, diabetes, excessive alcohol consumption, family history, high blood pressure, overweight, physical inactivity, prior stroke, heart attack, diagnosis of carotid artery stenosis or other artery disease. Warning signs: Sudden numbness or weakness of the face, arm or leg; especially on one side of the body, sudden confusion, trouble speaking or understanding, sudden trouble seeing in one or both eyes, sudden trouble walking, dizziness, loss of balance or coordination, sudden severe headache with no cause. Call 911 or go to the Emergency Room. CONGESTIVE HEART FAILURE: If you have been diagnosed with Congestive Heart Failure (CHF) and your symptoms return, make an appointment with your physician Weigh yourself daily. Notify your physician if you have a weight gain of two or more pounds in one day or five or more pounds in one week. If you experience any difficulty breathing, please call 911 BLEEDING: Although the risk of bleeding is minimal, it can happen. If you have any bleeding from the site, apply firm pressure above the puncture site for 10-15 minutes. If the bleeding does not stop, continue manual pressure and call 911 Contact your physician if: You develop a fever greater than 101 degrees Fahrenheit Your site becomes reddened or has any drainage You have an increase in pain or burning at the site or if a large knot forms at the site. If you experience chest pain, shortness of breath, dizziness, or extreme tiredness, stop the activity and rest. Please notify your physicians office if you experience any of these symptoms and they are not relieved by rest please call 911! - Diet and Activity Activity: increase activity as tolerated Diet: low fat, low cholesterol - VTE Reasons for not Prescribing Prophylaxis: Not indicated-Anticoagulated or INR therapeutic Documentation of Mechanical Device: Graduated compression elastic hosiery
[2018-02-16] MEDS ORDERED: Potassium Chloride Elixir 20 MEQ/15 ML UDC PO SCH (17:00)
== END 2018-02-16 15:56 | disposition home or self-care (01) | DRG 246 ==
LOC: EMEROOARM 11:12 → ICNU 12:12 → EMEROOARM 12:23 → ICNU 12:28 → 2NNU 02-15 15:46
PROVIDERS: ADMIT Internal Medicine Cardiovascular Disease; ATTEND Internal Medicine Cardiovascular Disease